=== PATIENT | male | born 1955 | race Caucasian/White ===

== ENCOUNTER 2020-08-21 17:06 | Inpatient (IN) | payer MEDICARE, SELFPAY ==
[2020-08-21] VITALS (7 sets, daily range): BP systolic 104–131; BP diastolic 53–80; PULSE 53–103; RESP 14–26; TEMP 36.4–36.8; O2SAT 92–95
--- NOTE | ~2020-08-21 | CT_ITS ---
EXAMINATION: CT abdomen pelvis w con DATE: 08/21/2020 20:06 INDICATION: Hematuria. Sepsis. TECHNIQUE: Computed tomography (CT) of the abdomen and pelvis was performed with 100 mL Omnipaque 350 intravenous contrast. Automated exposure control and iterative reconstruction technique were employe d. The dose-length product was 1157.87 mGy-cm. COMPARISON: None. FINDINGS: The visualized portions of the lung bases demonstrate mild atelectasis. No pleural effusion . The heart size is normal. No pericardial effusion. The liver, gallbladder, spleen, pancreas, and ad renal glands are normal. There are cysts in the kidneys measuring up to 12 mm on the left. The prosta te is moderately enlarged. There are no dilated loops of bowel. The appendix is normal. There are no pathologically enlarged lymph nodes. There is no free intraperitoneal fluid. There is severe lower navarro mbar spondylosis. IMPRESSION: 1. No etiology for hematuria. Reviewed, dictated and finalized at location A. CLUB WEIGHER
--- NOTE | ~2020-08-21 | XR_ITS ---
EXAMINATION: XR chest 2V DATE: 08/21/2020 19:21 INDICATION: Shortness of breath, cough, and fever. TECHNIQUE: Frontal and lateral views of the chest were obtained. COMPARISON: Chest 2 views 11/04/2016, chest CT 05/09/2012 FINDINGS: There are lucencies in the lungs, consistent with emphysema. There is mild atelectasis and scarring in the lower lung zones. No pleural effusion or pneumothorax. The heart size is normal. IMPRESSION: 1. Emphysema. 2. Mild atelectasis and scarring in the lower lung zones. Reviewed, dictated and finalized at location A. H PRESSER
--- NOTE | 2020-08-21 17:39 | ED.SOB ---
HPI - SOB/Dyspnea General Chief Complaint: Urogenital-Male Stated Complaint: peeing blood,cough, out of breath Time Seen by Provider: 08/21/20 17:39 Source: patient Mode of arrival: wheelchair Limitations: no limitations History of Present Illness HPI Narrative: 65-year-old man with a history of congestive heart failure and COPD comes in today complaining of 3 days of painless hematuria, cough, and progressive shortness of breath. He denies history of hematuria has had no abdominal pain, epistaxis, bruising, obstruction symptoms, or back pain. Denies any sick exposures, chest pain, sputum production, fever, chills or night sweats. MD elicited complaint: shortness of breath and cough Pertinent past history: COPD and congestive heart failure Onset (ago): day(s) (3) Context: recent illness Timing: constant and progressively worsening Severity: moderate Exacerbating factors: exertion Relieving factors: nothing and rest Known history of: COPD and congestive heart failure Associated symptoms: cough Treatment prior to arrival: none Related Data Home oxygen amount: none Home Medications Medication Instructions Recorded Confirmed albuterol sulfate 2 puff INHALATION PRN 08/21/20 08/21/20 atenolol 50 mg PO DAILY 08/21/20 08/21/20 atorvastatin 10 mg PO DAILY 08/21/20 08/21/20 fluticasone propion-salmeterol 2 inh INHALATION BID 08/21/20 08/21/20 [Akbarela Inhub] losartan 100 mg PO DAILY 08/21/20 08/21/20 metformin 500 mg PO BID 08/21/20 08/21/20 spironolactone 25 mg PO DAILY 08/21/20 08/21/20 Allergies Allergy/AdvReac Type Severity Reaction Status Date / Time No Known Allergies Allergy Unknown Unverified 05/23/14 00:51 Review of Systems Constitutional: Constitutional: Denies chills, Reports fatigue, Denies fever(s) and Reports weakness Eyes: Eyes: Denies change in vision and Denies photophobia ENT: Denies dysphagia, Denies nasal congestion and Reports sore throat Cardiovascular: Cardiovascular: Denies chest pain and Denies radiating jaw, neck or arm pain Respiratory: Respiratory: Reports as per HPI, Reports cough, Reports dyspnea and Denies wheezing Gastrointestinal: Gastrointestinal: Denies abdominal pain, Denies diarrhea, Denies nausea and Denies vomiting Comments: Denies hematochezia, melena, and hematemesis. Genitourinary: Genitourinary: Reports hematuria, Denies dysuria and Reports urinary frequency Musculoskeletal: Musculoskeletal: Denies back pain, Denies arthralgias and Denies joint swelling Integumentary/Breasts: Skin/Breast: Denies pruritus, Denies erythema and Denies rash Neurologic: Denies vertigo, Denies dizziness and Denies syncope Endocrine: Endocrine: Denies polydipsia and Denies polyuria Hematologic/Lymphatic: Hematologic/Lymphatic: Denies easy bleeding and Denies easy bruising Allergic/Immunologic: Allergic/Immunologic: Denies lip swelling and Denies throat swelling PMFSH Past Medical History Medical History Congestive heart failure negative heart catheterization per patient COPD (chronic obstructive pulmonary disease) Dyslipidemia T2DM (type 2 diabetes mellitus) Surgical History Surgical History History of left heart catheterization Social History Social History Smoking status: Current every day smoker Substance use: never Living arrangements: with family Exam Const: General: alert and ill appearing acutely Orientation/consciousness: patient oriented x3 Other: Mild acute distress, dyspneic HENMT: Head: normal to inspection Ears: external ears normal, TM's normal bilaterally and EAC's normal General nose exam: Normal nares present Face and sinus: normal facial exam Mouth: Yes moist mucous membranes Other: diffuse pharyngeal erythema Eyes: Conjunctivae: conjunctivae normal Pupils: Equal, round and
--- NOTE | 2020-08-21 17:44 | ECG_ITS ---
Measurements Intervals [place] Rate: 98 P: 66 CO: 178 QRS: 63 QRSD: 97 T: 55 QT: 343 QTc: 439 Interpretive Statements SINUS RHYTHM DELAYED PRECORDIAL R/S TRANSITION BASELINE WANDER- V1, V6 BORDERLINE ECG Electronically Signed On 08-21-2020 20:18:45 CERTIFIED PEER SPECIALIST by Wilder Goyal D.O.
[2020-08-21 18:18] LABS: Basophils Absolute Auto 0.04 K/mm3 (0.00-0.10); Basophils Percent Auto 0.2 % (0.0-1.0); Eosinophils Absolute Auto 0.03 K/mm3 (0.02-0.50); Eosinophils Percent Auto 0.2 % (1.0-6.0); Hematocrit 48.4 % (37.0-46.0); Hemoglobin 16.1 g/dL (12.4-15.3); Immature Granulocyte Absolute 0.14 K/mm3 (0.00-0.00); Immature Granulocyte Percent A 0.7 % (0.0-0.0); Lymphocytes Absolute Auto 1.08 K/mm3 (1.10-4.50); Lymphocytes Percent Auto 5.6 % (18.0-42.0); Mean Corpuscular HGB Conc 33.3 g/dL (32.0-36.0); Mean Corpuscular Hemoglobin 28.6 pg (27.0-31.0); Mean Platelet Volume 10.8 fl (8.7-11.0); Monocytes Absolute Auto 1.12 K/mm3 (0.10-0.90); Monocytes Percent Auto 5.8 % (2.0-11.0); Neutrophils Absolute Auto 16.9 K/mm3 (1.7-7.2); Neutrophils Percent Auto 87.5 % (50.0-70.0); Platelet Count Result 207 K/mm3 (150-420); Red Blood Count 5.63 M/mm3 (4.70-6.10); Red Cell Distribution Width 13.2 % (11.6-14.4); White Blood Count 19.4 K/mm3 (4.8-10.8)
[2020-08-21 18:21] LABS: Add Urine Microscopic? YES; Appearance Urine Clear (Clear); Bilirubin Urine Negative (Negative); Blood Urine 3+ (Negative); Color Urine Yellow (Yellow); Glucose Urine UA 3+ (Negative); Ketones Urine Negative (Negative); Leukocyte Esterase Ur Negative LEU/UL (Negative); Nitrate Urine Negative (Negative); Protein Urine Negative (Negative); Specific Grav Ur <= 1.005 (1.010-1.020); Urobilinogen Urine 0.2 mg/dL (0.2-1.0); pH Urine 5.5 (5.0-8.0)
[2020-08-21 18:29] LABS: RBC Urine >75 /hpf (0-2)
[2020-08-21 18:30] LABS: Bacteria Urine 1+ /hpf; WBC Urine 0-3 /hpf (0-3)
[2020-08-21 18:33] LABS: Partial Thromboplastin Time 29.7 SEC (23.90-30.70); Prothrombin Time 10.5 Seconds (9.50-12.10)
[2020-08-21 18:36] LABS: Alanine Aminotransferase 42 U/L (16-63); Albumin Level 3.2 g/dL (3.4-5.0); Alkaline Phosphatase 105 U/L (46-116); Anion Gap 13 mmol/L (8-16); Aspartate Amino Transferase 14 U/L (15-37); Bilirubin,Total 0.7 mg/dL (0.00-1.00); Blood Urea Nitrogen 15 mg/dL (7-18); Calcium 9.3 mg/dL (8.5-10.1); Carbon Dioxide 25 mmol/L (21-32); Chloride 94 mmol/L (98-108); Estimated CRCL calculation 46 ml/min; Estimated Glomerular Filt Rate 44; Osmolality Calculated 295 mOsm/kg (285-295); Potassium 4.2 mmol/L (3.5-5.1); Sodium 132 mmol/L (136-145); Total Protein 7.1 g/dL (6.4-8.2); Troponin I 12.4 ng/L (0.00-60.4)
[2020-08-21 18:37] LABS: Influenza Control Valid (Valid); SARS-CoV-2 Ag Negative (Negative)
[2020-08-21 18:39] LABS: BNP 33.3 pg/mL (0-100); Lactic Acid Reflex 6.3 mmol/L (0.4-2.0)
[2020-08-21 18:40] LABS: Glucose 482 mg/dL (70-99)
[2020-08-21] MEDS: IPRATROPIUM 0.5 MG/ALBUTEROL SULFATE 2.5 MG AMPUL.NEB 3 ML INHALATION (18:44)
--- NOTE | 2020-08-21 18:50 | PC.NURSE ---
ERP STATES URINARY CATHETER IS NOT NEEDED AT THIS TIME
[2020-08-21] MEDS: SODIUM CHLORIDE 0.9% IV 1,000 ML 999 ML IV CONT (19:10)
[2020-08-21 21:22] LABS: Reflex Lactic Acid Yes or No Add Lactic
[2020-08-21 21:44] LABS: Lactic Acid 2.7 mmol/L (0.4-2.0)
--- NOTE | 2020-08-21 22:00 | ADMGEN ---
This patient, Roni Granados, was admitted to 2nd Floor Room 211-1. Patient oriented to hospital policies and general routines including ID bracelet, bed and alarms, visiting hours, pain management, procedures, bathroom and other care routines, personal items, smoking policy, room service/diet, and visiting hours. Information on how to activate the Rapid Response Team has been discussed. Patient are encouraged to report perceived risks to care and to ask questions if they do not understand what they are told or what they should do. Patient ambulates steadily with no balance loss and using no assistive device. Patient coughing with small amount of white sputum noted. O2 on @ 2 lpm/nc. SpO2 dropping to 88% while coughing and then goes back up to 92-93% when done coughing. Patient alert and oriented. IV NS started to infuse to #20 in RAC. Patient denies pain/complaints/needs @ this time. No distress noted. Call light in reach.
[2020-08-21] MEDS: SODIUM CHLORIDE 0.9% IV 1,000 ML 150 ML IV CONT (22:22)
[2020-08-21] MEDS: ALBUTEROL SULFATE (*SP) INHALER 2 PUFF INHALATION (22:23)
[2020-08-21 22:54] LABS: Glucose Point of Care 208 (65-105)
[2020-08-21] MEDS: INSULIN HUMAN REGULAR (*BKC) 100 UNITS/ML SUB-Q (22:56)
[2020-08-22] VITALS (8 sets, daily range): BP systolic 102–116; BP diastolic 54–55; PULSE 78–88; RESP 20; TEMP 36.6–38.3; O2SAT 91–93; BMI 30.2
[2020-08-22] MEDS: ALBUTEROL SULFATE (*SP) INHALER 2 PUFF INHALATION ×2 (01:04→06:01)
--- NOTE | 2020-08-22 01:25 | PC.NURSE ---
Went into patients room with fresh ice water and patient was just waking up. Patient complained of room being too hot. Temp of room was increased earlier per patient's request. Room temp decreased. Noted patient to appear flushed in the face. Temperature taken and temp is 101.0 orally. Charge nurse notified and is notifying MD and requesting Tylenol order.
--- NOTE | 2020-08-22 01:27 | PC.NURSE ---
Dr. Lebron notified of pt's temp of 101.0. New orders received and noted.
[2020-08-22] MEDS: ACETAMINOPHEN 500 MG TABLET 1000 MG PO (01:30)
[2020-08-22 01:36] LABS: Lactic Acid Reflex 1.6 mmol/L (0.4-2.0)
[2020-08-22] MEDS: SODIUM CHLORIDE 0.9% IV 1,000 ML 150 ML IV CONT ×2 (03:50→10:15)
[2020-08-22 05:36] LABS: Basophils Absolute Auto 0.06 K/mm3 (0.00-0.10); Basophils Percent Auto 0.5 % (0.0-1.0); Eosinophils Absolute Auto 0.02 K/mm3 (0.02-0.50); Eosinophils Percent Auto 0.2 % (1.0-6.0); Hematocrit 44.9 % (37.0-46.0); Hemoglobin 14.7 g/dL (12.4-15.3); Immature Granulocyte Absolute 0.06 K/mm3 (0.00-0.00); Immature Granulocyte Percent A 0.5 % (0.0-0.0); Lymphocytes Absolute Auto 1.63 K/mm3 (1.10-4.50); Lymphocytes Percent Auto 12.9 % (18.0-42.0); Mean Corpuscular HGB Conc 32.7 g/dL (32.0-36.0); Mean Corpuscular Hemoglobin 28.1 pg (27.0-31.0); Mean Corpuscular Volume 85.9 fL (78.0-102.0); Mean Platelet Volume 10.4 fl (8.7-11.0); Monocytes Absolute Auto 1.04 K/mm3 (0.10-0.90); Monocytes Percent Auto 8.3 % (2.0-11.0); Neutrophils Absolute Auto 9.8 K/mm3 (1.7-7.2); Neutrophils Percent Auto 77.6 % (50.0-70.0); Platelet Count Result 185 K/mm3 (150-420); Red Blood Count 5.23 M/mm3 (4.70-6.10); Red Cell Distribution Width 13.2 % (11.6-14.4); White Blood Count 12.6 K/mm3 (4.8-10.8)
[2020-08-22 05:42] LABS: Hemoglobin A1C 11.3 % (<5.7)
[2020-08-22 05:56] LABS: Alanine Aminotransferase 43 U/L (16-63); Albumin Level 2.7 g/dL (3.4-5.0); Alkaline Phosphatase 82 U/L (46-116); Anion Gap 8 mmol/L (8-16); Aspartate Amino Transferase 21 U/L (15-37); Bilirubin,Total 0.9 mg/dL (0.00-1.00); Blood Urea Nitrogen 15 mg/dL (7-18); Calcium 8.6 mg/dL (8.5-10.1); Carbon Dioxide 26 mmol/L (21-32); Chloride 101 mmol/L (98-108); Estimated CRCL calculation 60 ml/min; Estimated Glomerular Filt Rate > 60; Glucose 207 mg/dL (70-99); Osmolality Calculated 286 mOsm/kg (285-295); Potassium 4.1 mmol/L (3.5-5.1); Sodium 135 mmol/L (136-145); Troponin I 16.2 ng/L (0.00-60.4)
[2020-08-22 06:00] LABS: Lactic Acid Reflex 1.1 mmol/L (0.4-2.0)
[2020-08-22] MEDS: SALMET XINAFT/FLUTIC PROPIN 250 MCG/50 MCG INH CAP 2 PUFF INHALATION (08:30)
[2020-08-22] MEDS: LOSARTAN POTASSIUM 50 MG TABLET 100 MG PO (08:31)
[2020-08-22] MEDS: SPIRONOLACTONE 25 MG TABLET PO (08:31)
[2020-08-22] MEDS: atenoloL 50 MG TABLET PO (08:31)
[2020-08-22] MEDS: ATORVASTATIN 10 MG TABLET PO (08:32)
[2020-08-22 08:44] LABS: Glucose Point of Care 179 (65-105)
[2020-08-22 09:00] LABS: Prostate Specific Antigen 7.1 ng/mL (< OR = 4.0)
[2020-08-22 09:20] LABS: CRP 9.4 mg/dL (0.0-0.9)
--- NOTE | 2020-08-22 11:07 | PM.SD2 ---
Same Day Admit/Disch: HPI History of Present Illness Chief complaint: SEPSIS HEMATURIA Narrative: Roni Granados is a 65 year old male that presented to our ED with shortness of breath cough and hematuria. Patient has a past medical history of congestive heart failure, COPD, dyslipidemia, type 2 diabetes. According to patient for approximately 1 week he has been having hematuria. Patient notes that on occasions he did see clots with the blood in his urine. Patient also notes that he has been having weakness with his blood in urine due to a large blood loss patient hemoglobin hematocrit was within normal limits on admission. Patient is a smoker he does have a chronic cough. Patient noted that the day of presentation to the ED in since admission he has not had any blood in his urine. Patient did have blood and bacteria in his urine his lactic acid on admission was 6.3 his INR was 1.0, his CT of the abdomen was negative for hematuria chest x-ray indicated emphysema, EKG sinus rhythm with a heart rate of 98, rapid Covid negative, troponin negative x3, CRP elevated at 9.4, PSA is 7, patient was febrile 101 during admission currently afebrile with a temperature 97.8. Patient was placed on Zosyn and vancomycin on admission. Patient agrees that he is ready for admission. He will remain quarantined until his Covid results are verified. The patient denies SOB, CP, palpitation, extremity numbness, lightheadedness, dizziness, constipation, diarrhea, chills, fever, hematuria, penile discharge or abdominal pain PMFSH Past Medical History Medical History Congestive heart failure negative heart catheterization per patient COPD (chronic obstructive pulmonary disease) Dyslipidemia T2DM (type 2 diabetes mellitus) Surgical History Surgical History History of left heart catheterization Social History Social History Smoking packs per day: 1 Smoking cigarettes per day: 20.0 Years smoked: 52 Smoking pack-years: 52.00 Smoking status: Current every day smoker Tobacco type: cigarettes Second hand tobacco smoke exposure: Yes Alcohol intake: never Substance use: never Living arrangements: with family Gender identity (if verbalized by the patient): Male Sexual Orientation (if Verbalized by the Patient): Straight or Heterosexual Spiritual care concerns: No Same Day Admit/Disch: Med Pre-admit Medications Home Medications Medication Instructions Recorded Confirmed Type albuterol sulfate 2 puff INHALATION PRN 08/21/20 08/21/20 History atenolol 50 mg PO DAILY 08/21/20 08/21/20 History atorvastatin 10 mg PO DAILY 08/21/20 08/21/20 History fluticasone propion-salmeterol 2 inh INHALATION BID 08/21/20 08/21/20 History [Wixela Inhub] losartan 100 mg PO DAILY 08/21/20 08/21/20 History metformin 500 mg PO BID 08/21/20 08/21/20 History spironolactone 25 mg PO DAILY 08/21/20 08/21/20 History Exam Narrative: Exam Narrative: GENERAL: This is a well-nourished, well-developed patient, in no apparent distress. HEAD: normocephalic, atraumatic. EYES: PERRL. Sclera clear/white. Vision is grossly intact. EARS: External ears normal, auditory canals clear and without drainage, TMs normal without perforation. Hearing grossly intact. NOSE: External nose normal with no obvious nasal discharge, nares without redness, no rhinorrhea. THROAT: Mucous membranes moist, posterior pharynx clear. NECK: Neck supple, non-tender without lymphadenopathy, masses or thyromegaly. CARDIOVASCULAR: Regular rate and rhythm without murmurs, gallops, or rubs. RESPIRATORY: Clear to auscultation. Breath sounds equal bilaterally. No wheezes, rales, or rhonchi. GASTROINTESTINAL: Abdomen soft, non-tender, nondistended. Bowel sounds are active. No hepato-splenomegaly, or palpable masses. No guarding. SKIN:
[2020-08-22 11:25] LABS: Glucose Point of Care 260 (65-105)
--- NOTE | 2020-08-22 15:37 | PC.NURSE ---
1420 pt dc to family auto to go home. vocalizes an understanding of dc instructions. all personal belongings sent with him.
[2020-08-23 17:46] LABS: SARS-CoV-2 RNA PCR Negative
--- NOTE | 2020-08-27 14:07 | PCDIET ---
Unable to contact for discharge call back.
== END 2020-08-22 14:20 | disposition home or self-care (01) | DRG 690 ==
LOC: CHSED 20:28 → CHS2ND 20:48
PROVIDERS: Nurse Practitioner; Admitting Provider Emergency Medicine; Emergency Provider Emergency Medicine; PCP Physician Assistant; Visit Provider Emergency Medicine
DX: N39.0 Urinary tract infection, site not specified (principal); N41.0 Acute prostatitis; N17.9 Acute kidney failure, unspecified; R31.9 Hematuria, unspecified; I50.9 Heart failure, unspecified; J44.9 Chronic obstructive pulmonary disease, unspecified; F17.200 Nicotine dependence, unspecified, uncomplicated; E78.5 Hyperlipidemia, unspecified; E11.9 Type 2 diabetes mellitus without complications; N40.0 Benign prostatic hyperplasia without lower urinary tract symptoms; F17.210 Nicotine dependence, cigarettes, uncomplicated; Z20.822 Contact with and (suspected) exposure to COVID-19; A41.9 Sepsis, unspecified organism
CPT/HCPCS: 36415; 71046; 74177; 80053; 81001; 82948; 83036; 83605; 83880; 84153; 84484; 85025; 85610; 85730; 86140; 87040; 87077; 87086; 87088; 87186; 87426; 87804; 93005; 94640; 96365; 96367; 99285; A9270; C9803; J1815; J2543; J3370; J7030; Q9967; U0003; U0005

== ENCOUNTER 2020-11-13 12:19 | Emergency (ER) | payer MEDICARE, OTHER, SELFPAY ==
--- NOTE | ~2020-11-13 | XR_ITS ---
EXAMINATION: XR foot RT min 3V DATE: 11/13/2020 13:11 INDICATION: Right foot injury. TECHNIQUE: 4 views of right foot were obtained. COMPARISON: None. FINDINGS: Bone alignment is normal. No fracture. There is moderate osteoarthritis of first metatarsop halangeal joint and mild osteoarthritis of fifth proximal interphalangeal joint and talonavicular brielle nt. There is an enthesophyte at plantar aspect of calcaneal tuberosity. There is soft tissue swelling of the foot. IMPRESSION: 1. Polyarticular osteoarthritis. Reviewed, dictated and finalized at location A.
--- NOTE | ~2020-11-13 | XR_ITS ---
EXAMINATION: XR ankle RT min 3V DATE: 11/13/2020 13:11 INDICATION: Right ankle injury. TECHNIQUE: 4 views of right ankle were obtained. COMPARISON: None. FINDINGS: Bone alignment is normal. No fracture. There is osteochondral lesion of medial talar dome. There is an enthesophyte at plantar aspect of calcaneal tuberosity. Ankle soft tissue swelling is not ed. IMPRESSION: 1. Osteochondral lesion of medial talar dome. Reviewed, dictated and finalized at location A.
[2020-11-13 12:45] VITALS: BP 144/68; PULSE 64; RESP 14; TEMP 36.4; O2SAT 97
--- NOTE | 2020-11-13 13:12 | ED.GENADULT ---
HPI - General Adult General Chief complaint: Extremity Injury, Lower Stated complaint: Hurt foot History of Present Illness HPI narrative: Earnest is a 65M with a PMH of HTN, HLD, CHF, COPD, DMII, tobacco use that presented to the ED with pain and swelling in the right ankle. He injured his right ankle while working a month ago and reinjured it a couple days ago. A couple days ago he was walking on a bank to go fishing and rolled his ankle. He has had pain and swelling since. No other injures reported. Related Data Home Medications Medication Instructions Recorded Confirmed albuterol sulfate 2 puff INHALATION PRN 08/21/20 11/13/20 atenolol 50 mg PO HS 08/21/20 11/13/20 atorvastatin 10 mg PO DAILY 08/21/20 11/13/20 losartan 100 mg PO HS 08/21/20 11/13/20 metformin 500 mg PO BID 08/21/20 11/13/20 spironolactone 25 mg PO HS 08/21/20 11/13/20 aspirin [Adult Aspirin] 81 mg PO HS 11/13/20 11/13/20 glucos sul [id number] 1 cap PO BID 11/13/20 11/13/20 [Glucosamine Chondroitin] Allergies Allergy/AdvReac Type Severity Reaction Status Date / Time No Known Allergies Allergy Unknown Unverified 05/23/14 00:51 Review of Systems Constitutional: Constitutional: Reports no additional constitutional complaints, Denies chills and Denies fever(s) Eyes: Eyes: Reports no additional eye complaints ENT: Reports system reviewed and no additional complaints, except as documented Cardiovascular: Cardiovascular: Reports no additional cardiovascular complaints Respiratory: Respiratory: Reports no additional respiratory complaints Gastrointestinal: Gastrointestinal: Reports no additional gastrointestinal complaints Genitourinary: Genitourinary: Reports no additional male genitourinary complaints Musculoskeletal: Musculoskeletal: Reports as per HPI Integumentary/Breasts: Skin/Breast: Reports system reviewed and no additional complaints, except as docu Neurologic: Reports system reviewed and no additional complaints, except as documented Psychiatric: Psychiatric: Reports no additional psychiatric complaints Endocrine: Endocrine: Reports no additional endocrine complaints Hematologic/Lymphatic: Hematologic/Lymphatic: Reports no additional hematologic/lymphatic complaints Allergic/Immunologic: Allergic/Immunologic: Reports no additional allergic/immunologic complaints FOR[facility]LY [facility], [facility] Past Medical History Medical History Congestive heart failure negative heart catheterization per patient COPD (chronic obstructive pulmonary disease) Dyslipidemia T2DM (type 2 diabetes mellitus) Surgical History Surgical History History of left heart catheterization Social History Social History Smoking packs per day: 1 Smoking cigarettes per day: 20.0 Years smoked: 52 Smoking pack-years: 52.00 Smoking status: Current every day smoker Tobacco type: cigarettes Second hand tobacco smoke exposure: Yes Alcohol intake: never Substance use: never Gender identity (if verbalized by the patient): Male Spiritual care concerns: No Exam Const: General: no acute distress and alert Orientation/consciousness: patient oriented x3 Limitations: altered mental status HENMT: Head: normal to inspection Other: atraumatic Eyes: Conjunctivae: conjunctivae normal Pupils: Equal, round and reactive pupils present Neck: Neck: normal visual inspection Chest: Chest palpation & inspection: normal inspection of the chest Resp: Effort & Inspection: normal respiratory effort Auscultation: clear to auscultation bilaterally Cardio: Rate: regular rate GI: GI Palp: Yes Soft to palpation, No Tenderness to palpation present (GI) and No Guarding due to palpation present (GI) Back/Spine/Pelvis: Back: no CVA tenderness Skin: General skin exam: normal color Rashes: no rashes Neuro:
[2020-11-13] MEDS: HYDROcodone/acetaminophen (*CRX) 5-325 MG TABLET 1 TAB PO (13:36)
[2020-11-13 13:56] VITALS: RESP 15; O2SAT 98
--- NOTE | 2020-11-13 13:57 | PC.NURSE ---
erasmo wrap applied to right foot per requested by erp dr. salvador
== END 2020-11-13 14:03 | disposition home or self-care (01) ==
PROVIDERS: Emergency Provider Family Medicine; PCP Physician Assistant
DX: M89.9 Disorder of bone, unspecified (principal); M19.071 Primary osteoarthritis, right ankle and foot
CPT/HCPCS: 73610; 73630; 99282; 99283; A9270

== ENCOUNTER 2021-01-06 10:01 | Outpatient (CLI) | payer MEDICARE, OTHER, SELFPAY ==
--- NOTE | ~2021-01-06 | XR_ITS ---
EXAMINATION: XR foot RT min 3V DATE: 01/06/2021 10:31 INDICATION: Right foot injury. TECHNIQUE: 3 views of right foot were obtained. COMPARISON: None. FINDINGS: Pes planus is noted. No fracture. There is mild osteoarthritis of first metatarsophalangeal joint and some of the midfoot joints. There is an enthesophyte at plantar aspect of calcaneal tubero sity. IMPRESSION: 1. Pes planus. 2. Mild polyarticular osteoarthritis. Reviewed, dictated and finalized at location A.
--- NOTE | ~2021-01-06 | XR_ITS ---
EXAMINATION: XR ankle RT min 3V DATE: 01/06/2021 10:31 INDICATION: Right ankle injury. TECHNIQUE: 3 views of right ankle were obtained. COMPARISON: None. FINDINGS: Bone alignment is normal. No fracture. There is an osteochondral lesion of medial talar dom e. There is mild osteoarthritis of talonavicular joint. There is an enthesophyte at plantar aspect of calcaneal tuberosity. Ankle soft tissue swelling is noted. IMPRESSION: 1. Polyarticular osteoarthritis. Reviewed, dictated and finalized at location A.
== END 2021-01-06 10:02 | disposition home or self-care (01) ==
LOC: CHSIMG 10:05
PROVIDERS: PCP Physician Assistant; Visit Provider Podiatrist
DX: M79.671 Pain in right foot (principal); M25.571 Pain in right ankle and joints of right foot
CPT/HCPCS: 73610; 73630

== ENCOUNTER 2021-08-01 12:57 | Emergency (ER) | payer MEDICARE, OTHER, SELFPAY ==
[2021-08-01 13:21] VITALS: BP 120/67; PULSE 91; RESP 16; TEMP 36.1; O2SAT 97
--- NOTE | 2021-08-01 13:44 | PC.NURSE ---
Bladder scan shows 9ml post void. ERP aware. Awaiting UA results.
[2021-08-01 14:03] LABS: Add Urine Microscopic? YES; Appearance Urine Cloudy (Clear); Bilirubin Urine Negative (Negative); Blood Urine 3+ (Negative); Color Urine Red (Yellow); Glucose Urine UA 3+ (Negative); Ketones Urine 1+ (Negative); Leukocyte Esterase Ur 2+ (Negative); Nitrate Urine Positive (Negative); Protein Urine 1+ (Negative)
[2021-08-01 14:13] LABS: RBC Urine 51-75 /hpf (0-2); WBC Urine 51-75 /hpf (0-3)
[2021-08-01 14:14] LABS: Bacteria Urine 2+ /hpf; Squamous Epithelial Cell Urine None seen /hpf (Few)
--- NOTE | 2021-08-01 14:20 | ED.MALEGU ---
HPI - Male Genitourinary General Chief complaint: Urogenital-Male Stated complaint: peralta when urinating and frequant urination Time Seen by Provider: 08/01/21 12:59 Source: patient, family and RN notes reviewed Mode of arrival: ambulatory Limitations: no limitations History of Present Illness HPI Narrative: Pt does not have urinary retention, merely voiding difficulty due to the dysuria. Complaint: dysuria Duration: progressively worsening Location: penis Severity: moderate Severity scale (1-10): 5 Quality: burning Relieving factors: none Exacerbating factors: none Associated symptoms: Reports denies other symptoms Related Data Sexually active: No Home Medications Medication Instructions Recorded Confirmed albuterol sulfate 2 puff INHALATION PRN 08/21/20 08/01/21 atenolol 50 mg PO HS 08/21/20 08/01/21 atorvastatin 10 mg PO DAILY 08/21/20 08/01/21 losartan 100 mg PO HS 08/21/20 08/01/21 metformin 500 mg PO BID 08/21/20 08/01/21 spironolactone 25 mg PO HS 08/21/20 08/01/21 aspirin [Adult Aspirin] 81 mg PO HS 11/13/20 08/01/21 glucos sul [id number]-Mn 1 cap PO BID 11/13/20 08/01/21 [Glucosamine Chondroitin] Allergies Allergy/AdvReac Type Severity Reaction Status Date / Time No Known Allergies Allergy Unknown Verified 08/01/21 13:14 Review of Systems Review of Systems: All systems reviewed & are unremarkable except as noted in HPI and below Genitourinary: Genitourinary: Reports dysuria PMFSH Past Medical History Medical History Congestive heart failure negative heart catheterization per patient COPD (chronic obstructive pulmonary disease) Dyslipidemia T2DM (type 2 diabetes mellitus) Urinary tract infection Surgical History Surgical History History of left heart catheterization Social History Social History Smoking packs per day: 1 Smoking cigarettes per day: 20.0 Years smoked: 52 Smoking pack-years: 52.00 Smoking status: Current every day smoker Tobacco type: cigarettes Second hand tobacco smoke exposure: Yes Alcohol intake: never Substance use: never Gender identity (if verbalized by the patient): Male Sexual Orientation (if Verbalized by the Patient): Straight or Heterosexual Spiritual care concerns: No Exam Const: General: cooperative, comfortable and alert Nutritional Appearance: obese Orientation/consciousness: patient oriented x3 Limitations: no limitations HENMT: Head: normal to inspection, normocephalic and atraumatic Ears: hearing grossly normal bilaterally, external ears normal and TM's normal bilaterally General nose exam: Normal external nose present and Normal nares present Face and sinus: normal facial exam and sinuses nontender Mouth: Yes Normal oral and palatal mucosa present, Yes lip normal, Yes tongue normal, Yes oropharynx normal and Yes moist mucous membranes Eyes: General: appearance normal, both eyes and all related structures Eyelids: eyelids normal Conjunctivae: conjunctivae normal Sclera: sclerae normal Cornea: corneas normal Pupils: Equal, round and reactive pupils present EOM: EOMs intact bilaterally Direct Ophthalmoscopy: normal light reflex Neck: Neck: normal visual inspection, full ROM and no lymphadenopathy Chest: Chest palpation & inspection: normal inspection of the chest Resp: Effort & Inspection: normal respiratory effort Auscultation: rhonchi Cardio: Palpation: normal PMI Rate: regular rate Rhythm: regular rhythm GI: Inspection: normal to inspection GI Palp: No abdominal tenderness and No Bladder palpation abnormal Auscultation: normal bowel sounds : General: Yes bladder normal to inspection and Yes bladder normal to palpation Back/Spine/Pelvis: Back: no CVA tenderness Thoracic/Lumbar Spine: thoracic and lumbar spine normal to inspection Sk
[2021-08-01] MEDS: cefTRIAXone 1 GM VIAL IM (14:25)
[2021-08-01 14:31] VITALS: BP 115/65; PULSE 79; RESP 16; TEMP 36.1; O2SAT 96
== END 2021-08-01 14:40 | disposition home or self-care (01) ==
PROVIDERS: Emergency Provider Emergency Medicine; PCP Physician Assistant
DX: N39.0 Urinary tract infection, site not specified (principal); I50.9 Heart failure, unspecified; J44.9 Chronic obstructive pulmonary disease, unspecified; E78.5 Hyperlipidemia, unspecified; E11.9 Type 2 diabetes mellitus without complications; F17.200 Nicotine dependence, unspecified, uncomplicated
CPT/HCPCS: 81001; 96372; 99283; J0696

== ENCOUNTER 2021-08-07 12:08 | Emergency (ER) | payer MEDICARE, OTHER, SELFPAY ==
[2021-08-07 12:55] VITALS: BP 147/70; PULSE 62; RESP 20; TEMP 36.5; O2SAT 97
--- NOTE | 2021-08-07 12:56 | ED.MALEGU ---
HPI - Male Genitourinary General Chief complaint: Urogenital-Male Stated complaint: burning urination Time Seen by Provider: 08/07/21 12:56 Source: patient and family Mode of arrival: ambulatory Limitations: no limitations History of Present Illness HPI Narrative: this is a 66-year-old gentleman that presents with dysuria and urinary dribbling was seen in the emergency department on Wednesday the 01 of August with similar problem started on Keflex, the patient called his provider and told him to return to the ER patient has been passing urine but with some more frequency and dribbling and there is no suprapubic tenderness no fever chills no flank pain no hematuria no abdominal pain. Onset (ago): day(s) Duration: intermittent Severity: mild Quality: burning and other ( trouble urinating) Relieving factors: urination Exacerbating factors: none Context: new medication Associated symptoms: Reports denies other symptoms Related Data Home Medications Medication Instructions Recorded Confirmed albuterol sulfate 2 puff INHALATION PRN 08/21/20 08/07/21 atenolol 50 mg PO HS 08/21/20 08/07/21 atorvastatin 10 mg PO DAILY 08/21/20 08/07/21 losartan 100 mg PO HS 08/21/20 08/07/21 metformin 500 mg PO BID 08/21/20 08/07/21 spironolactone 25 mg PO HS 08/21/20 08/07/21 aspirin [Adult Aspirin] 81 mg PO HS 11/13/20 08/07/21 glucos sul [id number]-[id number]-[id number]-C-Mn 1 cap PO BID 11/13/20 08/07/21 [Glucosamine Chondroitin] linagliptin [Tradjenta] 5 mg PO DAILY 08/07/21 08/07/21 qbsjlemmufzq-glaoqdno-etggjk 1 tablet PO DAILY 08/07/21 08/07/21 [Centrum Silver] Allergies Allergy/AdvReac Type Severity Reaction Status Date / Time No Known Allergies Allergy Unknown Verified 08/07/21 12:42 Review of Systems Review of Systems: All systems reviewed & are unremarkable except as noted in HPI and below PMFSH Past Medical History Medical History Congestive heart failure negative heart catheterization per patient COPD (chronic obstructive pulmonary disease) Dyslipidemia T2DM (type 2 diabetes mellitus) Urinary tract infection Surgical History Surgical History History of left heart catheterization Social History Social History Smoking packs per day: 1 Smoking cigarettes per day: 20.0 Years smoked: 52 Smoking pack-years: 52.00 Smoking status: Current every day smoker Tobacco type: cigarettes Second hand tobacco smoke exposure: Yes Alcohol intake: never Substance use: never Gender identity (if verbalized by the patient): Male Sexual Orientation (if Verbalized by the Patient): Straight or Heterosexual Spiritual care concerns: No Exam Const: General: no acute distress HENMT: Head: normal to inspection Eyes: Pupils: Equal, round and reactive pupils present EOM: EOMs intact bilaterally Direct Ophthalmoscopy: no photophobia Neck: Neck: normal visual inspection Chest: Chest palpation & inspection: normal inspection of the chest Resp: Effort & Inspection: normal respiratory effort Auscultation: clear to auscultation bilaterally Cardio: Rate: regular rate GI: GI Palp: Yes Soft to palpation Percussion: Yes normal to percussion : General: Yes bladder normal to palpation and Yes no CVA tenderness Urinary Catheter: Urinary Catheter: patent and draining Back/Spine/Pelvis: Back: no CVA tenderness Skin: General skin exam: normal color Neuro: General: patient oriented x3, moves all extremities and no meningeal signs Extrem: General: normal to inspection and no pedal edema Psych: Appearance: grossly normal Mental Status: mental status grossly normal Affect: normal affect Course Course Emergency Course: UA was obtained and reviewed with family will start a different antibiotic and will start Flomax and advised follow-up with primary care phys
[2021-08-07] MEDS: TAMSULOSIN HCL 0.4 MG CAPSULE PO (13:14)
[2021-08-07 13:24] VITALS: BP 123/97; PULSE 61; RESP 20; TEMP 36.7; O2SAT 96
== END 2021-08-07 13:26 | disposition home or self-care (01) ==
PROVIDERS: Emergency Provider Emergency Medicine; PCP Physician Assistant
DX: N40.1 Benign prostatic hyperplasia with lower urinary tract symptoms (principal); N30.00 Acute cystitis without hematuria; I50.9 Heart failure, unspecified; J44.9 Chronic obstructive pulmonary disease, unspecified; E78.5 Hyperlipidemia, unspecified; E11.9 Type 2 diabetes mellitus without complications; F17.200 Nicotine dependence, unspecified, uncomplicated
CPT/HCPCS: 99283; A9270

== ENCOUNTER 2021-09-26 03:25 | Emergency (ER) | payer MEDICARE, OTHER, SELFPAY ==
[2021-09-26 03:25] VITALS: BP 158/62; PULSE 87; RESP 20; TEMP 35.8; O2SAT 98
--- NOTE | 2021-09-26 03:53 | ED.MALEGU ---
HPI - Male Genitourinary General Chief complaint: Urogenital-Male Stated complaint: Can't Urinate Source: patient and family Mode of arrival: ambulatory Limitations: no limitations History of Present Illness HPI Narrative: this is a 66-year-old gentleman that presents with some a history of enlarged prostate recently saw his urologist and was started on antibiotics, is currently on medicine to help shrink his prostate, but reached a level where he was not able to pass urine over last 6hours and presents with some obstruction of urine flow. Patient had tenderness in the suprapubic area with no fever chills. Complaint: dysuria Onset (ago): hour(s) Duration: constant Severity: moderate Related Data Home Medications Medication Instructions Recorded Confirmed atenolol 50 mg PO HS 08/21/20 09/26/21 losartan 100 mg PO HS 08/21/20 09/26/21 metformin 500 mg PO BID 08/21/20 09/26/21 spironolactone 25 mg PO HS 08/21/20 09/26/21 aspirin [Adult Aspirin] 81 mg PO HS 11/13/20 09/26/21 glucos sul 5MRt-cpf-hdkrg-C-Mn 1 cap PO BID 11/13/20 09/26/21 [Glucosamine Chondroitin] hqusibuxavtd-qpjofqmh-tsxvjl 1 tablet PO DAILY 08/07/21 09/26/21 [Centrum Silver] ciprofloxacin HCl 500 mg PO BID 09/26/21 09/26/21 Allergies Allergy/AdvReac Type Severity Reaction Status Date / Time No Known Allergies Allergy Unknown Verified 08/12/21 10:38 Review of Systems Review of Systems: All systems reviewed & are unremarkable except as noted in HPI and below PMFSH Past Medical History Medical History Congestive heart failure negative heart catheterization per patient COPD (chronic obstructive pulmonary disease) Dyslipidemia T2DM (type 2 diabetes mellitus) Urinary tract infection Surgical History Surgical History History of left heart catheterization Family History Family History Father , 37 Motorcycle accident Mother , 87 No problems noted. Social History Social History Social History: Patient drinks coffee all day. Smoking packs per day: 1 Smoking cigarettes per day: 20.0 Years smoked: 52 Smoking pack-years: 52.00 Smoking status: Current every day smoker Tobacco type: cigarettes Second hand tobacco smoke exposure: Yes Alcohol intake: never Substance use: never Substance use type: does not use Additional living arrangements comments: Patient is Gender identity (if verbalized by the patient): Male Sexual Orientation (if Verbalized by the Patient): Straight or Heterosexual Spiritual care concerns: No Exam Const: General: no acute distress HENMT: Head: normal to inspection Eyes: Conjunctivae: conjunctivae normal Pupils: Equal, round and reactive pupils present Neck: Neck: normal visual inspection, no lymphadenopathy and no meningeal signs Chest: Chest palpation & inspection: normal inspection of the chest Resp: Effort & Inspection: normal respiratory effort Cardio: Rate: regular rate Rhythm: regular rhythm GI: GI Palp: Yes Soft to palpation Percussion: Yes normal to percussion : Other: Suprapubic pressure Urinary Catheter: Urinary Catheter: patent and draining Back/Spine/Pelvis: Back: no CVA tenderness Skin: General skin exam: normal color Rashes: no rashes Neuro: General: patient oriented x3 and moves all extremities Extrem: General: normal to inspection Psych: Mental Status: mental status grossly normal Affect: normal affect Course Course Emergency Course: had a Pedroza catheter placed and there was 900cc of urine that drained. Patient after the Pedroza catheter feels much better with relief of suprapubic pressure. Vital Signs Vital signs: Vital Signs Temperature 35.8 C L 09/26/21 03:25 Pulse Rate 8
[2021-09-26 03:59] VITALS: BP 122/95; PULSE 88; RESP 20; O2SAT 95
== END 2021-09-26 04:13 | disposition home or self-care (01) ==
PROVIDERS: Emergency Provider Emergency Medicine; PCP Emergency Medicine
DX: N13.9 Obstructive and reflux uropathy, unspecified (principal); I50.9 Heart failure, unspecified; J44.9 Chronic obstructive pulmonary disease, unspecified; E78.5 Hyperlipidemia, unspecified; E11.9 Type 2 diabetes mellitus without complications; F17.200 Nicotine dependence, unspecified, uncomplicated
CPT/HCPCS: 99283

== ENCOUNTER 2021-10-02 23:38 | Emergency (ER) | payer MEDICARE, OTHER, SELFPAY ==
[2021-10-02 23:42] VITALS: BP 156/113; PULSE 93; RESP 19; TEMP 36.4; O2SAT 96
[2021-10-03] MEDS: LIDOCAINE HCL 2% GEL UROJET 10 ML PKG (00:03)
--- NOTE | 2021-10-03 00:20 | ED.GENADULT ---
HPI - General Adult General Chief complaint: Urogenital-Male Stated complaint: unable to void Time Seen by Provider: 10/02/21 23:43 Source: patient, family, RN notes reviewed and old records reviewed Mode of arrival: ambulatory Limitations: no limitations History of Present Illness HPI narrative: 66-year-old male with recent history of urinary retention currently on antibiotics for prostatitis. Presents to the emerge department for evaluation of acute urinary retention. Patient initially had urinary retention on September 26 and did have a Pedroza catheter placed. Patient had follow-up with urology today and at approximately 11 AM had a Pedroza catheter removed. Patient states he has not urinated since having the Pedroza catheter removed. Patient does describe lower abdominal pressure and abdominal pain. Patient states he did have pain that radiated to his testicles. Patient is taking Flomax and is also on Cipro. Patient denies any nausea vomiting or diarrhea. Patient denies any fevers. Related Data Home Medications Medication Instructions Recorded Confirmed atenolol 50 mg PO HS 08/21/20 09/26/21 losartan 100 mg PO HS 08/21/20 09/26/21 metformin 500 mg PO BID 08/21/20 09/26/21 spironolactone 25 mg PO HS 08/21/20 09/26/21 aspirin [Adult Aspirin] 81 mg PO HS 11/13/20 09/26/21 glucos sul 6ECo-dvm-inkqv-C-Mn 1 cap PO BID 11/13/20 09/26/21 [Glucosamine Chondroitin] ijhwhisahosk-awdbeall-xwadvq 1 tablet PO DAILY 08/07/21 09/26/21 [Centrum Silver] ciprofloxacin HCl 500 mg PO BID 09/26/21 09/26/21 Allergies Allergy/AdvReac Type Severity Reaction Status Date / Time No Known Allergies Allergy Unknown Verified 10/03/21 00:05 Review of Systems Review of Systems: CONSTITUTIONAL: Denies fever, chills, or sweats. EYES: Denies visual changes, redness, or discharge. ENT: Denies rhinorrhea, congestion, sore throat, or otalgia. CARDIOVASCULAR: Denies chest pain, palpitations, or edema. RESPIRATORY: Denies cough or dyspnea. GASTROINTESTINAL: Suprapubic abdominal pain GENITOURINARY: Urinary retention SKIN: Denies rash or itching. MUSCULOSKELETAL: Denies back pain, joint pain, or myalgia. NEUROLOGIC: Denies headache, numbness, or weakness. [facility] Past Medical History Medical History Congestive heart failure negative heart catheterization per patient COPD (chronic obstructive pulmonary disease) Dyslipidemia T2DM (type 2 diabetes mellitus) Urinary tract infection Surgical History Surgical History History of left heart catheterization Family History Family History Father , 37 Motorcycle accident Mother , 87 No problems noted. Social History Social History Social History: Patient drinks coffee all day. Smoking packs per day: 1 Smoking cigarettes per day: 20.0 Years smoked: 52 Smoking pack-years: 52.00 Smoking status: Current every day smoker Tobacco type: cigarettes Second hand tobacco smoke exposure: Yes Alcohol intake: never Substance use: never Substance use type: does not use Additional living arrangements comments: Patient is Gender identity (if verbalized by the patient): Male Sexual Orientation (if Verbalized by the Patient): Straight or Heterosexual Spiritual care concerns: No Exam Narrative: APPEARANCE: distress due to abdominal pain HEAD: normocephalic, atraumatic. NECK: Supple. No adenopathy, no masses. RESPIRATORY: Airway patent, respirations nonlabored. Clear to auscultation bilaterally, no rales, rhonchi, wheezing. CARDIOVASCULAR: Regular rate and rhythm without murmurs rubs or gallops. ABDOMINAL: Soft, nontender, nondistended, normal bowel sounds MUSCULOSKELETAL: Moves all extremities. Strength/ROM intact, No edema, No calf
[2021-10-03 01:02] VITALS: BP 104/65; PULSE 66; RESP 16; O2SAT 96
== END 2021-10-03 01:03 | disposition home or self-care (01) ==
LOC: ANHED 10-03 00:40
PROVIDERS: Emergency Provider Emergency Medicine; PCP Emergency Medicine
DX: R33.9 Retention of urine, unspecified (principal); N41.9 Inflammatory disease of prostate, unspecified; I50.9 Heart failure, unspecified; J44.9 Chronic obstructive pulmonary disease, unspecified; E11.9 Type 2 diabetes mellitus without complications; E78.5 Hyperlipidemia, unspecified; Z87.440 Personal history of urinary (tract) infections; F17.210 Nicotine dependence, cigarettes, uncomplicated; Z79.82 Long term (current) use of aspirin; Z79.84 Long term (current) use of oral hypoglycemic drugs
CPT/HCPCS: 51702; 99283

== ENCOUNTER 2021-11-08 09:30 | Outpatient (CLI) | payer MEDICARE, SELFPAY ==
[2021-11-08 09:57] LABS: Basophils Absolute Auto 0.09 K/mm3 (0.00-0.10); Basophils Percent Auto 0.6 % (0.0-1.0); Eosinophils Absolute Auto 0.34 K/mm3 (0.02-0.50); Eosinophils Percent Auto 2.4 % (1.0-6.0); Hematocrit 50.6 % (37.0-46.0); Hemoglobin 16.4 g/dL (12.4-15.3); Immature Granulocyte Absolute 0.09 K/mm3 (0.00-0.00); Immature Granulocyte Percent A 0.6 % (0.0-0.0); Lymphocytes Absolute Auto 3.18 K/mm3 (1.10-4.50); Lymphocytes Percent Auto 22.1 % (18.0-42.0); Mean Corpuscular HGB Conc 32.4 g/dL (32.0-36.0); Mean Corpuscular Hemoglobin 28.7 pg (27.0-31.0); Mean Corpuscular Volume 88.6 fL (78.0-102.0); Monocytes Absolute Auto 0.84 K/mm3 (0.10-0.90); Monocytes Percent Auto 5.8 % (2.0-11.0); Neutrophils Absolute Auto 9.9 K/mm3 (1.7-7.2); Neutrophils Percent Auto 68.5 % (50.0-70.0); Platelet Count Result 261 K/mm3 (150-420); Red Blood Count 5.71 M/mm3 (4.70-6.10); White Blood Count 14.4 K/mm3 (4.8-10.8)
[2021-11-08 10:25] LABS: Alanine Aminotransferase 22 U/L (16-63); Albumin Level 3.7 g/dL (3.4-5.0); Alkaline Phosphatase 116 U/L (46-116); Anion Gap 7 mmol/L (8-16); Aspartate Amino Transferase 33 U/L (15-37); Blood Urea Nitrogen 18 mg/dL (7-18); Calcium 9.8 mg/dL (8.5-10.1); Carbon Dioxide 29 mmol/L (21-32); Chloride 99 mmol/L (98-108); Cholesterol 139 mg/dL (0-200); Estimated Glomerular Filt Rate > 60; Glucose 175 mg/dL (70-99); HDL Direct 41 mg/dL (40-60); LDL Cholesterol Calculated 74 mg/dL (<130); Osmolality Calculated 285 mOsm/kg (285-295); Potassium 5.5 mmol/L (3.5-5.1); Sodium 135 mmol/L (136-145); Thyroid Stimulating Hormone 0.82 uIU/mL (0.36-3.74); Total Protein 7.9 g/dL (6.4-8.2); Triglycerides 122 mg/dL (0-150)
[2021-11-08 10:28] LABS: Hemoglobin A1C 7.9 % (<5.7)
[2021-11-13 01:55] LABS: Vitamin D 1,25 (OH)2 Total 40 pg/mL (18-72); Vitamin D2 1,25 (OH)2 <8 pg/mL; Vitamin D3 1,25 (OH)2 40 pg/mL
== END 2021-11-08 09:31 | disposition home or self-care (01) ==
PROVIDERS: PCP Emergency Medicine; Visit Provider Emergency Medicine
DX: R53.83 Other fatigue (principal); R73.09 Other abnormal glucose; I10 Essential (primary) hypertension; Z12.5 Encounter for screening for malignant neoplasm of prostate; Z13.220 Encounter for screening for lipoid disorders; E55.9 Vitamin D deficiency, unspecified
CPT/HCPCS: 36415; 80053; 80061; 82652; 83036; 84153; 84443; 85025; G0103

== ENCOUNTER 2021-11-11 13:53 | Outpatient (CLI) | payer MEDICARE, SELFPAY ==
[2021-11-11 14:22] LABS: Potassium 4.1 mmol/L (3.5-5.1)
== END 2021-11-11 13:54 | disposition home or self-care (01) ==
LOC: CHSLAB 13:57
PROVIDERS: PCP Emergency Medicine; Visit Provider Emergency Medicine
DX: E87.6 Hypokalemia (principal)
CPT/HCPCS: 36415; 84132

== ENCOUNTER 2022-02-26 10:04 | Outpatient (CLI) | payer MEDICARE, SELFPAY ==
[2022-02-26 10:41] LABS: Hemoglobin A1C 7.5 % (<5.7)
[2022-02-26 10:43] LABS: Alanine Aminotransferase 73 U/L (16-63); Albumin Level 3.6 g/dL (3.4-5.0); Alkaline Phosphatase 102 U/L (46-116); Anion Gap 8 mmol/L (8-16); Aspartate Amino Transferase 36 U/L (15-37); Bilirubin,Total 0.5 mg/dL (0.00-1.00); Blood Urea Nitrogen 24 mg/dL (7-18); Calcium 9.5 mg/dL (8.5-10.1); Carbon Dioxide 27 mmol/L (21-32); Chloride 101 mmol/L (98-108); Cholesterol 157 mg/dL (0-200); Estimated Glomerular Filt Rate > 60; Glucose 207 mg/dL (70-99); HDL Direct 49 mg/dL (40-60); LDL Cholesterol Calculated 78 mg/dL (<130); Osmolality Calculated 292 mOsm/kg (285-295); Potassium 4.8 mmol/L (3.5-5.1); Sodium 136 mmol/L (136-145); Total Protein 7.5 g/dL (6.4-8.2); Triglycerides 149 mg/dL (0-150)
== END 2022-02-26 10:05 | disposition home or self-care (01) ==
LOC: CHSLAB 10:08
PROVIDERS: PCP Emergency Medicine; Visit Provider Emergency Medicine
DX: I50.9 Heart failure, unspecified (principal); E78.00 Pure hypercholesterolemia, unspecified; E11.9 Type 2 diabetes mellitus without complications
CPT/HCPCS: 36415; 80053; 80061; 83036

== ENCOUNTER 2022-06-30 12:25 | Outpatient (CLI) | payer MEDICARE, OTHER, SELFPAY ==
[2022-06-30 13:25] LABS: Hemoglobin A1C 9.1 % (<5.7)
[2022-06-30 13:31] LABS: Microalbumin Urine Random 132.3 mg/L
[2022-06-30 13:42] LABS: Alanine Aminotransferase 34 U/L (16-63); Albumin Level 3.6 g/dL (3.4-5.0); Alkaline Phosphatase 116 U/L (46-116); Anion Gap 8 mmol/L (8-16); Aspartate Amino Transferase 16 U/L (15-37); Bilirubin,Total 0.7 mg/dL (0.00-1.00); Blood Urea Nitrogen 14 mg/dL (7-18); Calcium 9.6 mg/dL (8.5-10.1); Carbon Dioxide 28 mmol/L (21-32); Chloride 102 mmol/L (98-108); Cholesterol 161 mg/dL (0-200); Estimated Glomerular Filt Rate > 60; Glucose 186 mg/dL (70-99); HDL Direct 43 mg/dL (40-60); LDL Cholesterol Calculated 90 mg/dL (<130); Osmolality Calculated 291 mOsm/kg (285-295); Potassium 4.5 mmol/L (3.5-5.1); Sodium 138 mmol/L (136-145); Total Protein 7.3 g/dL (6.4-8.2); Triglycerides 140 mg/dL (0-150)
== END 2022-06-30 12:26 | disposition home or self-care (01) ==
PROVIDERS: PCP Emergency Medicine; Visit Provider Emergency Medicine
DX: R53.83 Other fatigue (principal); E11.9 Type 2 diabetes mellitus without complications; I50.9 Heart failure, unspecified
CPT/HCPCS: 36415; 80053; 80061; 82043; 83036

== ENCOUNTER 2023-06-10 08:47 | Outpatient (CLI) | payer MEDICARE, OTHER, SELFPAY ==
[2023-06-10 09:39] LABS: Hemoglobin A1C 8.5 % (<5.7)
[2023-06-10 09:56] LABS: Alanine Aminotransferase 29 U/L (16-63); Albumin Level 3.5 g/dL (3.4-5.0); Alkaline Phosphatase 100 U/L (46-116); Anion Gap 5 mmol/L (8-16); Aspartate Amino Transferase 10 U/L (15-37); Bilirubin,Total 0.6 mg/dL (0.00-1.00); Blood Urea Nitrogen 11 mg/dL (7-18); Calcium 9.7 mg/dL (8.5-10.1); Carbon Dioxide 34 mmol/L (21-32); Chloride 98 mmol/L (98-108); Cholesterol 155 mg/dL (0-200); Estimated Glomerular Filt Rate > 60; Glucose 188 mg/dL (70-99); HDL Direct 42 mg/dL (40-60); LDL Cholesterol Calculated 96 mg/dL (<130); Osmolality Calculated 288 mOsm/kg (285-295); Potassium 4.2 mmol/L (3.5-5.1); Prostate Specific Antigen 2.3 ng/mL (< OR = 4.0); Sodium 137 mmol/L (136-145); Total Protein 6.9 g/dL (6.4-8.2); Triglycerides 84 mg/dL (0-150)
[2023-06-10 09:59] LABS: Creatinine Urine 81.39 mg/dL (40-278)
[2023-06-13 21:48] LABS: Vitamin D 25 Hydroxy 32 ng/mL (30-100)
== END 2023-06-10 08:48 | disposition home or self-care (01) ==
LOC: CHSLAB 08:50
PROVIDERS: PCP Emergency Medicine; Visit Provider Emergency Medicine
DX: Z12.5 Encounter for screening for malignant neoplasm of prostate (principal); I50.9 Heart failure, unspecified; E11.9 Type 2 diabetes mellitus without complications; E55.9 Vitamin D deficiency, unspecified
CPT/HCPCS: 36415; 80053; 80061; 82043; 82306; 83036; 84153; G0103

== ENCOUNTER 2023-10-05 12:35 | Outpatient (CLI) | payer MEDICARE, SELFPAY ==
[2023-10-05 13:51] LABS: Alanine Aminotransferase 22 U/L (6-50); Albumin Level 4.3 g/dL (3.5-5.1); Alkaline Phosphatase 91 U/L (38-126); Anion Gap 7 mmol/L (4-12); Aspartate Amino Transferase 20 U/L (17-59); Blood Urea Nitrogen 15 mg/dL (9-20); Calcium 10.1 mg/dL (8.4-10.2); Carbon Dioxide 27 mmol/L (22-30); Chloride 105 mmol/L (98-107); Estimated Glomerular Filt Rate > 60; Glucose 153 mg/dL (65-110); Potassium 4.3 mmol/L (3.4-5.0); Sodium 139 mmol/L (137-145)
== END 2023-10-05 12:36 | disposition home or self-care (01) ==
PROVIDERS: PCP Emergency Medicine
DX: C69.31 Malignant neoplasm of right choroid (principal)
CPT/HCPCS: 36415; 80053

== ENCOUNTER 2023-10-21 09:57 | Outpatient (CLI) | payer MEDICARE, SELFPAY ==
--- NOTE | ~2023-10-21 | CT_ITS ---
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 Dose reduction technique was used on this scan by carmen garcíaing automated exposure control and iterative reconstruction technique. The dose-length product (DL P) was 893.88 mGy-cm. COMPARISON: 08/21/2020 Findings: There is no evidence of any significant mediastinal, hilar or axillary lymphadenopathy. The mediastin al soft tissues and vascular structures appear normal. There is no evidence of pleural or pericardial effusion. There is moderate to advanced emphysema, particularly upper lobes. There are several subpleural subce ntimeter right upper lobe pulmonary nodules, most likely benign. The liver, spleen, pancreas, gallbladder, adrenals and kidneys are within normal limits. There are at herosclerotic calcifications and soft atherosclerotic plaques of the aorta. No lymphadenopathy. No bowel obstruction or bowel wall thickening. There is no evidence to suggest acute appendicitis. Urinary bladder is unremarkable. Prostate gland is enlarged, and indents to the bladder base. Impression: No evidence of metastatic disease. Moderate to advanced emphysema with several probable benign subpleural subcentimeter right upper lobe pulmonary nodules. Enlarged prostate gland. Reviewed, dictated and finalized at location . Impression: No evidence of metastatic disease. Moderate to advanced emphysema with several probable benign subpleural subcenti meter right upper lobe pulmonary nodules. Enlarged prostate gland.
== END 2023-10-21 09:58 | disposition home or self-care (01) ==
LOC: ANHIMG 10:01
PROVIDERS: PCP Emergency Medicine
DX: C69.31 Malignant neoplasm of right choroid (principal); J43.9 Emphysema, unspecified; N40.0 Benign prostatic hyperplasia without lower urinary tract symptoms
CPT/HCPCS: 71260; 74177; Q9967

== ENCOUNTER 2024-05-09 10:40 | Outpatient (CLI) | payer MEDICARE, SELFPAY ==
[2024-05-09 11:28] LABS: Alanine Aminotransferase 26 U/L (6-50); Albumin Level 4.1 g/dL (3.5-5.1); Alkaline Phosphatase 97 U/L (38-126); Anion Gap 3 mmol/L (4-12); Aspartate Amino Transferase 20 U/L (17-59); Bilirubin,Total 0.6 mg/dL (0.2-1.3); Blood Urea Nitrogen 21 mg/dL (9-20); Calcium 9.8 mg/dL (8.4-10.2); Carbon Dioxide 32 mmol/L (22-30); Chloride 99 mmol/L (98-107); Cholesterol 155 mg/dL (0-200); Estimated Glomerular Filt Rate > 60; Glucose 176 mg/dL (65-110); HDL Direct 43 mg/dL; Potassium 4.7 mmol/L (3.4-5.0); Sodium 134 mmol/L (137-145); Triglycerides 98 mg/dL (<150)
[2024-05-09 11:39] LABS: LDL Cholesterol Direct 87 mg/dL
[2024-05-09 11:46] LABS: Hemoglobin A1C 9.4 % (<5.7)
[2024-05-09 12:17] LABS: Creatinine Urine 83.1 mg/dL
[2024-05-09 12:36] LABS: MALB Creatinine Ratio 265.5 mg/g (0-30); Microalbumin Urine Random 220.6 mg/L (0-16.7)
== END 2024-05-09 10:41 | disposition home or self-care (01) ==
PROVIDERS: PCP Emergency Medicine; Visit Provider Emergency Medicine
DX: Z13.1 Encounter for screening for diabetes mellitus (principal); E11.9 Type 2 diabetes mellitus without complications; Z13.220 Encounter for screening for lipoid disorders
CPT/HCPCS: 36415; 80053; 80061; 82043; 83036

== ENCOUNTER 2024-11-13 10:25 | Outpatient (CLI) | payer MEDICARE, SELFPAY ==
[2024-11-13 10:56] LABS: Alanine Aminotransferase 22 U/L (6-50); Albumin Level 4.1 g/dL (3.5-5.1); Alkaline Phosphatase 97 U/L (38-126); Anion Gap 5 mmol/L (4-12); Aspartate Amino Transferase 22 U/L (17-59); Bilirubin,Total 0.6 mg/dL (0.2-1.3); Blood Urea Nitrogen 15 mg/dL (9-20); Calcium 9.5 mg/dL (8.4-10.2); Carbon Dioxide 30 mmol/L (22-30); Chloride 99 mmol/L (98-107); Cholesterol 192 mg/dL (0-200); Estimated Glomerular Filt Rate > 60; Glucose 164 mg/dL (65-110); HDL Direct 41 mg/dL; Potassium 4.7 mmol/L (3.4-5.0); Sodium 134 mmol/L (137-145); Triglycerides 118 mg/dL (<150)
--- OUTSIDE RECORDS SUMMARY | 2024-11-13 11:00 | XMS_ITS | Encounter Summary ---
Author Organization [facility] Address [address] [place] [address] Phone Care Team Providers Care Waste Machine Offbearer Name Role Phone Mark Case MD Primary Care Provide r Maykel Brooks MD Unavailable [phone] Herb Weber OD Unavailable [phone] Chris Valle MD Unavailable [phone] Mckinley Garcia MD Unavailable [phone] Encounter Details Date Type Department Care Team (Latest Contact Info) Description 12/17/2023 Orders Only CRAFT IM ONCOLOGY Scanning, Provider Social History Tobacco Use Types Packs/Day Years Used Date Smoking Tobacco: Every Day Cigarettes Passive Smoke Exposure: Never Smokeless Tobacco: Never Comments:Smoking History Pac ks/day: 0.5 Packs Alcohol Use Standard Drinks/Week Comments Yes 0 (1 standard drink = 0.6 oz pur e alcohol) AUDIT-C Answer Date Recorded Q1: How often do you have a drink containing alcohol? Never 12/08/2023 Q2: How many drinks containi ng alcohol do you have on a typical day when you are drinking? Patient does not drink Q3: How often do you have si x or more drinks on one occasion? Never 12/08/2023 Personal Safety Answer Date Recorded Have you ever been in or are you currently in a harmful physical or emotional relationship or is someone making you feel afraid or unsafe? 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 Gender Identity Not on file Sexual Orientation Not on file documented as of this encounter Plan of Treatment Not on file documented as of this encounter Procedures Procedure Name Priority Date/Time Associated Diagnosis Comments SCAN - LABS 12/17/2023 documented in this encounter Results * SCAN - LABS (12/17/2023) us Provider Scanning Final Result documented in this encounter Visit Diagnoses Not on filedocumented in this encounter Care Teams Waste Machine Offbearer Relationship Specialty Start Date End Date Mark Case MD [address] [place] [address] PCP - General Emergency Medicine 09/10/23 Maykel Brooks MD [address] [place] [address] Referring Physician Ophthalmology 11/16/23 Herb Weber OD [address] [place] [address] Optometry 11/16/23 Chris Valle MD [address] DEPT OPTHALMOLOGY, [address] [place] [address] Consulting Physician Ophthalmology 12/28/23 Mckinley Garcia MD [address] DEPT OPTHALMOLOGY, [address] [place] [address] Medical Oncologist/Rounding Machine Tender Medical Oncology 12/28/23 documented as of this encounter
--- OUTSIDE RECORDS SUMMARY | 2024-11-13 11:00 | XMS_ITS | Encounter Summary ---
Author Organization [facility] Address [address] [place] [address] Phone Care Team Providers Care Palliative Care Coordinator Name Role Phone Mark Case MD Primary Care Provide r Maykel Brooks MD Unavailable [phone] Herb Weber OD Unavailable [phone] Chris Valle MD Unavailable [phone] Mckinley Garcia MD Unavailable [phone] Encounter Details Date Type Department Care Team (Latest Contact Info) Description 01/17/2024 Orders Only CRAFT IM ONCOLOGY Scanning, Provider [...] on file 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 Gender Identity Not on file Sexual Orientation Not on file documented as of this encounter Plan of Treatment Not on file documented as of this encounter Procedures Procedure Name Priority Date/Time Associated Diagnosis Comments SCAN - PATHOLOGY 01/17/2024 documented in this encounter Results * SCAN - PATHOLOGY (01/17/2024) us Provider Scanning Edited Result - Final documented in this encounter Visit Diagnoses Not on filedocumented in this encounter Care Teams Palliative Care Coordinator Relationship Specialty Start Date End Date Mark Case MD [address] [place] [address] PCP - General Emergency Medicine 09/10/23 Maykel Brooks MD [address] [place] [address] Referring Physician Ophthalmology 11/16/23 Herb Weber OD [address] [facility] [address] Optometry 11/16/23 Chris Valle MD [address] DEPT OPTHALMOLOGY, [address] [place] [address] Consulting Physician Ophthalmology 12/28/23 Mckinley Garcia MD [address] DEPT OPTHALMOLOGY, [address] [place] [id number] Medical Oncologist/Commercial Subcontractor Medical Oncology 12/28/23 documented as of this encounter
--- OUTSIDE RECORDS SUMMARY | 2024-11-13 11:00 | XMS_ITS | Referral Summary ---
Author Organization [facility] Address [address] [place] [address] Care Team Providers Care Bone Char Operator Name Role Phone Mark Case MD Primary Care Provide r Maykel Brooks MD Unavailable [phone] Herb Weber OD Unavailable [phone] Chris Valle MD Unavailable [phone] Mckinley Garcia MD Unavailable [phone] Allergies No known active allergies Medications aspirin (ASPIRIN LOW DOSE) 81 mg tablet take 1 Tablet (81MG) by oral route every day 0 05/30/20 12 Active Additional Information Patient taking differently:81 mgoral Nightly, Indications: Myocardial Reinfarction Prevention, Informant: Spouse/Significant Other, Reported on 12/08/2023 albuterol HFA (PROAIR HFA) 90 mcg/actuation inhaler inhale 2 puff by inhalation route every 4 - 6 hours as needed 0 05/30/20 12 Active Additional Information Patient taking differently: 2 puff inhalation As needed, shortness of breath, Indications: Chronic Obstructive Pulmonary Disease, Informant: Spouse/Significant Other, Reported on 12/08/2023 multivitamin tablet tablet take 1 tablet by oral route every day with food 0 05/30/20 12 Active Additional Information Patient taking differently: 1 tablet oral Nightly, Indications: Vitamin Deficiency Prevention, supplement, Informant: Spouse/Significant Other, Reported on 12/08/2023 fluticasone-salmet rai (ADVAIR DISKUS) 250-50 mcg/dose diskus inhaler inhale 1 puff by inhalation route 2 times every day in the morning and evening approximately 12 hours apart 0 05/30/20 12 Active Additional Information Patient taking differently: 1 puff inhalation 2 times daily, Indications: Bronchospasm Prevention with COPD, Informant: Spouse/Significant Other, Reported on 12/08/2023 spironolactone (ALDACTONE) 25 mg tablet TAKE 1 TABLET BY ORAL ROUTE EVERY DAY 90 3 06/18/20 14 Active Additional Information Patient taking differently:25 mgoral Nightly, Indications: chronic heart failure, Informant: Spouse/Significant Other, Reported on 12/08/2023 atorvastatin (LIPITOR) 10 mg tablet TAKE 1 TABLET (10MG) BY ORAL ROUTE EVERY DAY 90 3 06/24/20 12 Active Additional Information Patient taking differently:10 mgoral Nightly, Indications: hyperlipidemia, Informant: Spouse/Significant Other, Reported on 12/08/2023 atenoloL (TENORMIN) 50 mg tabletIndications: hypertension Take 1 tablet (50 mg total) by mouth nightly at bedtime. 09/13/19 24 Active dutasteride (AVODART) 0.5 mg capsuleIndications :benign prostatic hyperplasia with lower urinary tract sx Take 1 capsule (0.5 mg total) by mouth nightly 08/24/19 24 Active losartan (COZAAR) 100 mg tabletIndications: hypertension Take 1 tablet (100 mg total) by mouth nightly at bedtime. 09/13/19 24 Active metFORMIN (GLUCOPHAGE) 500 mg tabletIndications: type 2 diabetes mellitus Take 1 tablet (500 mg total) by mouth nightly 09/13/19 24 Active tamsulosin (FLOMAX) 0.4 mg extended release capsuleIndications :benign prostatic hyperplasia with lower urinary tract sx Take 1 capsule (0.4 mg total) by mouth nightly 08/27/[address] (PROTONIX) 40 mg EC tabletIndications: Treatment of Non-Bleeding Gastric Disorder Take 1 tablet (40 mg total) by mouth nightly 11/02/19 24 Active glucosamine-chondr oit-vit C-Mn capsuleIndications :joint health Take 1 tablet by mouth nightly Active ondansetron ODT (ZOFRAN-ODT) 4 mg disintegrating tabletIndications: Prevention of Post-Operative Nausea and Vomiting Take 1 tablet (4 mg total) by mouth every 8 (eight) hours as needed for nausea 12 tablet 12/17/19 24 Active Additional Information Patient not taking.Reported on 02/22/2024 oxyCODONE (ROXICODONE) 5 mg immediate release tabletIndications: Pain Take 1 tablet (5 mg total) by mouth every 6 (six) hours as needed for pain (Pain not controlled with Tylenol) 12 tablet 12/17/19 24 Active Additional Information Patient not taking.Reported on 02/22/2024 erythromycin (ILOTYCIN) ophthalmic ointment Apply to right eye nightly 3.5 g 11 03/03/20 24 Active Active Problems Problem Noted Date Diagnosed Date 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 Examination demonstrates a large choroidal mass consistent with choroidal melanoma, considering its size I think the best options enucleation for the right eye. We discussed the risk of metastatic disease, and the need for systemic evaluation. Will arrange for systemic screening for metastasis and evaluation with our ocular plastics colleagues for enucleation of the right eye. 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 Gender Identity Not on file Sexual Orientation Not on file Last Filed Vital Signs Vital Sign Reading Time Taken Comments Blood Pressure 144/73 03/13/2024 9:45 AM CDT Pulse 75 03/13/2024 9:45 AM CDT Temperature 36.3 C (97.3 F) 03/13/2024 9:45 AM CDT Respiratory Rate 18 03/13/2024 9:45 AM CDT Oxygen Saturation 93% 03/13/2024 9:45 AM CDT Inhaled Oxygen Concentration - - Weight 83.7 kg (184 lb 9.6 oz) 03/13/2024 9:45 A M CDT Height 177.8 cm (5' 10 ) 03/13/2024 9:45 AM CDT Body Mass Index 26.49 03/13/2024 9:45 AM CDT Plan of Treatment Not on file Medical Devices Implanted Type Area Artist Color Separation Device Identifier Shelf Expiration Date Model / Serial / Lot Mid Tamie Transplant Srvcs Implant Cornea Sclera Whole Left V0048 - [id number] - [id number] Implanted:Qty: 1 on 12/17/2023 by Chris Valle MD at [facility] Other - see comments Right: Orbit Mid Tamie Transplant Srvcs 10/19/2024 V0048 / [id number] / [id number] Description:Sclera [employer] Anjana 22mm 22mm Hard Lightweight Inert Virtually Unbreakable [id number] - [id number] Implanted:Qty: 1 on 12/17/2023 by Chris Valle MD at [facility] Other - see comments Right: [employer] [id number] 02/11/2026 [id number] / / [id number] Description:Sphere Procedures Procedure Name Priority Date/Time Associated Diagnosis Comments CT CHEST ABDOMEN PELVIS W CONTRAST Schedule Routine, Read Routine (OP Routine) 03/13/2024 7:31 AM CDT 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 Multiple sub-5 mm right upper lung pulmonary nodules on a background of centrilobular emphysema. No definite evidence of metastatic disease in the chest, abdomen or pelvis. 2. 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 Dictated by: Julia Stein MD The radiology attending physician has personally reviewed this study, and had reviewed and/or edited this written report and agrees with it. Electronically signed by: Janis Mahan M.D. Narrative 03/13/2024 8:25 AM CDT EXAMINATION: Computed tomography of the chest, abdomen and pelvis with intravenous contrast HISTORY: Choroid melanoma of the right eye. TECHNIQUE: Transaxial computed tomographic images of the chest, abdomen and pelvis were obtained with intravenous contrast according to the standard protocol after the uneventful administration of 70 mL Opti-Ray 350 intravenous contrast. COMPARISON: None. FINDINGS: Chest: Extensive centrilobular emphysematous changes to the lungs. There are multiple sub-5 mm right apical pulmonary nodules. For reference, right upper lobe pulmonary nodule measures 4 mm (series 3 image 37). No pulmonary consolidation, pneumothorax or pleural effusion. There is debris within the left mainstem bronchus. No supraclavicular, mediastinal, or axillary lymphadenopathy. Heart is normal in size without pericardial effusion. Moderate calcified and noncalcified atherosclerosis of the aortic arch. There is noncalcified eccentric atherosclerotic plaque of the descending aorta. Abdomen/Pelvis: Multiple hypoattenuating liver lesions are too small to accurately characterize but likely represent simple cysts and can be correlated with prior CTs if available. For reference, a hepatic segment 7 lesion measures 5 mm (series 2 image 136). Gallbladder normal. Portal, superior mesenteric, and splenic veins are patent. Spleen and pancreas are normal. Thickening of the left adrenal gland likely secondary to adenomatous change or small adenomas. Kidneys enhance symmetrically without hydronephrosis or nephrolithiasis. Bilateral hypoattenuating renal lesions, some of which are too small to actually characterize likely represent simple cysts. Bladder is normal. Prostate is moderately enlarged. Bowel is normal in course and caliber with evidence of obstruction or inflammation. No ascites or pneumoperitoneum. Distal esophagus and stomach are normal. There is severe calcified and noncalcified plaque of the abdominal aorta. No abdominal or pelvic lymphadenopathy. Likely bone island within the right proximal femur. Multilevel degenerative changes without suspicious osseous lesion. Procedure Note Janis Mahan MD - 03/13/2024 EXAMINATION: Computed tomography of the chest, abdomen and pelvis with intravenous contrast HISTORY: Choroid melanoma of the right eye. TECHNIQUE: Transaxial computed tomographic images of the chest, abdomen and pelvis were obtained with intravenous contrast according to the standard protocol after the uneventful administration of 70 mL Opti-Ray 350 intravenous contrast. COMPARISON: None. FINDINGS: Chest: Extensive centrilobular emphysematous changes to the lungs. There are multiple sub-5 mm right apical pulmonary nodules. For reference, right upper lobe pulmonary nodule measures 4 mm (series 3 image 37). No pulmonary consolidation, pneumothorax or pleural effusion. There is debris within the left mainstem bronchus. No supraclavicular, mediastinal, or axillary lymphadenopathy. Heart is normal in size without pericardial effusion. Moderate calcified and noncalcified atherosclerosis of the aortic arch. There is noncalcified eccentric atherosclerotic plaque of the descending aorta. Abdomen/Pelvis: Multiple hypoattenuating liver lesions are too small to accurately characterize but likely represent simple cysts and can be correlated with prior CTs if available. For reference, a hepatic segment 7 lesion measures 5 mm (series 2 image 136). Gallbladder normal. Portal, superior mesenteric, and splenic veins are patent. Spleen and pancreas are normal. Thickening of the left adrenal gland likely secondary to adenomatous change or small adenomas. Kidneys enhance symmetrically without hydronephrosis or nephrolithiasis. Bilateral hypoattenuating renal lesions, some of which are too small to actually characterize likely represent simple cysts. Bladder is normal. Prostate is moderately enlarged. Bowel is normal in course and caliber with evidence of obstruction or inflammation. No ascites or pneumoperitoneum. Distal esophagus and stomach are normal. There is severe calcified and noncalcified plaque of the abdominal aorta. No abdominal or pelvic lymphadenopathy. Likely bone island within the right proximal femur. Multilevel degenerative changes without suspicious osseous lesion. IMPRESSION: 1. Multiple sub-5 mm right upper lung pulmonary nodules on a background of centrilobular emphysema. No definite evidence of metastatic disease in the chest, abdomen or pelvis. 2. 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 Dictated by: Julia Stein MD The radiology attending physician has personally reviewed this study, and had reviewed and/or edited this written report and agrees with it. Electronically signed by: Janis Mahan M.D. Mckinley Garcia MD IMG CT PROCEDURES Final Result from Last 3 Months or Most Recently Relevant to Health Maintenance Insurance Second Decimal MEDICARE PPO [employer] CHOICE MEDICARE PPO Care Teams Bone Char Operator Relationship Specialty Start Date End Date Mark Case MD [address] [place] [address] PCP - General Emergency Medicine 09/10/23 Maykel Brooks MD [address] [place] [address] Referring Physician Ophthalmology 11/16/23 Herb [place] [address] Optometry 11/16/23 Chris Valle MD [address] DEPT OPTHALMOLOGY, [address] [place] [address] Consulting Physician Ophthalmology 12/28/23 Mckinley Garcia MD [address] DEPT OPTHALMOLOGY, [address] [place] [address] Medical Oncologist/Voting Machine Repairer Medical Oncology 12/28/23
--- OUTSIDE RECORDS SUMMARY | 2024-11-13 11:00 | XMS_ITS ---
Author Organization [facility] Address [address] [place] [address] Care Team Providers Care Manufacturing Maintenance Mechanic Name Role Phone Mark Case MD Primary Care Provide r Maykel Brooks MD Unavailable [phone] Herb Weber OD Unavailable Chris Valle MD Unavailable [phone] Mckinley Garcia MD Unavailable [phone] Active Problems Problem Noted Date Diagnosed Date [...] colleagues for enucleation of the right eye. Current Treatment and Therapy Plans No current plan information found. Past Treatment and Therapy Plans No past plan information found. Lifetime Dose Tracking * Chemical Lifetime Dose Automatic Entry Manual Entr y DLP 611 mGycm 611 mGycm 0 mGycm
--- OUTSIDE RECORDS SUMMARY | 2024-11-13 11:00 | XMS_ITS | Clinical Summary ---
Author Organization [facility] Address [address] [place] [address] Care Team Providers Care Software Quality Assurance Engineer Name Role Phone Mark Case MD Primary Care Provide r Maykel Brooks MD Unavailable Herb Weber OD Unavailable [phone] Chris Valle MD Unavailable [phone] Mckinley Garcia MD Unavailable [phone] Allergies No known active allergies Medications [...] colleagues for enucleation of the right eye. Surgical History Surgery Date Site/Laterality Comments NO PAST SURGERIES Per pateint EYE SURGERY ENUCLEATION 12/17/2023 Right RIGHT EYE ENUCLEATION WITH SCLERA COVERED IMPLANT Medical History Medical History Date Comments Hypertension Hypertension Chronic obstructive pulmonary disease (HCC) COPD Gastroesophageal reflux disease GERD Cataract Prostate disorder Diabetes mellitus (HCC) CHF (congestive heart failure) (HCC) NICM Emphysema lung (HCC) Choroidal malignant melanoma, right (HCC) Malignant melanoma (HCC) choroid right eye Retinal detachment Family History Medical History Relation Name Comments Heart attack Mother's Brother 1 1 Myocardia l Infarction; Heart attack Mother's Brother 2 2 Myocardia l Infarction; Heart attack Mother's Brother 3 3 Myocardia l Infarction; Cancer Sister Diabetes Neg Hx Glaucoma Neg Hx Macular degeneration Neg Hx Thyroid disease Neg Hx Relation Name Status Comments Mother's Brother 1 1 Alive Mother's Brother 2 2 Alive Mother's Brother 3 3 Alive Sister Social History Tobacco Use Types Packs/Day Years [...] on file 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 Gender Identity Not on file Sexual Orientation Not on file Obstetrics History Last Filed Vital Signs Vital Sign Reading [...] 03/13/2024 9:45 AM CDT Plan of Treatment Health Maintenance Due Date Last Done Comments Colon Cancer Screening-Colonoscopy 1955 Depression Screening 1955 Hepatitis C Screening 1955 Prostate Cancer Screening-PSA 1955 DTaP/Tdap/Td Vaccine (1 - Tdap) 1966 Hepatitis B Screening 1973 Pneumococcal vaccine 65+ (1 of 2 - PCV) 1974 Zoster Vaccine (1 of 2) 2005 Well Visit 65+ 01/21/2020 Fall Risk Assessment 12/16/2024 12/17/2023 Influenza Vaccine (Season Ended) 2025 Abdominal Aortic Aneurysm (AAA) Screen Completed Medical Devices Implanted Type Area Pigment Weigher Device Identifier Shelf Expiration Date Model / Serial / Lot Mid Tamie Transplant Srvcs Implant Cornea Sclera Whole Left V0048 - [id number] - [id number] Implanted:Qty: 1 on 12/17/2023 by Chris Valle MD at [facility] Other - see comments Right: [employer] Mid Tamie Transplant Srvcs 10/19/2024 V0048 / [id number] / [id number] Description:Sclera [employer] Anjana 22mm 22mm Hard Lightweight Inert Virtually Unbreakable [id number] - [id number] Implanted:Qty: 1 on 12/17/2023 by Chris Valle MD at [facility] Other - see comments Right: [employer] [id number] 02/11/2026 [id number] / / [id number] Description:Sphere Procedures Procedure Name Priority Date/Time Associated [...] Most Recently Relevant to Health Maintenance Insurance [employer] CHOICE MEDICARE PPO [employer] CHOICE MEDICARE PPO Care Teams Software Quality Assurance Engineer Relationship Specialty Start Date End Date Mark Case MD [address] [place] [address] PCP - General Emergency Medicine 09/10/23 Maykel Brooks MD [address] [place] [address] Referring Physician Ophthalmology 11/16/23 Herb Weber [place] [address] [address] Optometry 11/16/23 Chris Valle MD [address] DEPT OPTHALMOLOGY, [address] [place] [id number] Consulting Physician Ophthalmology 12/28/23 Mckinley Garica MD [address] DEPT OPTHALMOLOGY, [address] [place] [address] Medical Oncologist/Streetcar Starter Medical Oncology 12/28/23
[2024-11-13 11:07] LABS: LDL Cholesterol Direct 116 mg/dL
[2024-11-13 11:11] LABS: Hemoglobin A1C 7.8 % (<5.7)
[2024-11-13 11:31] LABS: Creatinine Urine 99.3 mg/dL
[2024-11-13 11:49] LABS: MALB Creatinine Ratio 442.9 mg/g (0-30); Microalbumin Urine Random 439.8 mg/L (0-16.7)
== END 2024-11-13 10:26 | disposition home or self-care (01) ==
PROVIDERS: PCP Emergency Medicine; Visit Provider Emergency Medicine
DX: E78.5 Hyperlipidemia, unspecified (principal); E55.9 Vitamin D deficiency, unspecified; E11.9 Type 2 diabetes mellitus without complications
CPT/HCPCS: 36415; 80053; 80061; 82043; 82306; 83036

== ENCOUNTER 2025-02-28 09:18 | Outpatient (CLI) | payer MEDICARE, SELFPAY ==
--- OUTSIDE RECORDS SUMMARY | 2025-02-28 09:58 | XMS_ITS | Encounter Summary ---
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 Gender Identity Not on file Sexual Orientation [...] on filedocumented in this encounter Care Teams Material Coordinator Relationship Specialty Start Date End Date Mark Case MD [address] [place] [address] PCP - General Emergency Medicine 09/10/23 Maykel Brooks MD [address] [place] [address] Referring Physician Ophthalmology 11/16/23 Herb Weber OD [address] [place] [address] Optometry 11/16/23 Chris Valle MD [address] DEPT OPTHALMOLOGY, [address] [place] [address] Consulting Physician Ophthalmology 12/28/23 Mckinley Garcia MD [address] DEPT OPTHALMOLOGY, [address] [place] [address] Medical Oncologist/Visitor Services Assistant Medical Oncology 12/28/23 documented as of this encounter
--- OUTSIDE RECORDS SUMMARY | 2025-02-28 09:58 | XMS_ITS | Encounter Summary ---
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 Gender Identity Not on file Sexual Orientation [...] on filedocumented in this encounter Care Teams Service Counselor Relationship Specialty Start Date End Date Mark Case MD [address] [place] [address] PCP - General Emergency Medicine 09/10/23 Maykel Brooks MD [address] [place] [address] Referring Physician Ophthalmology 11/16/23 Herb Weber OD [address] [facility] [place] [address] Optometry 11/16/23 Chris Valle MD [address] DEPT OPTHALMOLOGY, [address] [place] [address] Consulting Physician Ophthalmology 12/28/23 Mckinley Garcia MD [address] DEPT OPTHALMOLOGY, [address] [place] [address] Medical Oncologist/Ip Counsel Medical Oncology 12/28/23 documented as of this encounter
--- OUTSIDE RECORDS SUMMARY | 2025-02-28 09:58 | XMS_ITS | Patient Health Record ---
Author Organization [facility] Address [address] [place], [place] [id number] Support Name Relationship Address Phone [facility] Emergency Contact Unknown NEFTALY BONNER Guarantor Unknown [phone] Reason For Referral No Information Plan Of Treatment No Information Insurance Providers Payer Name Payer Address Payer Phone Subscriber Number Group Number Insured Name Patient Relationship to Insured Coverage Start Date Coverage End Date Medicare Part B [place] [address] [place] [address] [id number] NEFTALY ROE Self - patient is the insured [employer] [address] [place], [place] [id number] NEFTALY ROE Self - patient is the insured [facility] [address] [place], [place] [id number] NEFTALY ROE Self - patient is the insured
--- OUTSIDE RECORDS SUMMARY | 2025-02-28 09:58 | XMS_ITS ---
Author Organization [facility] Address [address] [place] [address] Care Team Providers Care Research Manufacturing Operator Name Role Phone Mark Case MD Primary Care Provide r Maykel Brooks MD Unavailable [phone] Herb Weber OD Unavailable [phone] Chris Valle MD Unavailable [phone] Mckinley Garcia MD Unavailable [phone] Active Problems Problem Noted Date Diagnosed [...]
--- OUTSIDE RECORDS SUMMARY | 2025-02-28 09:58 | XMS_ITS | Clinical Summary ---
Author Organization [facility] Address [address] [place] [address] Care Team Providers Care Sap Ppm Consultant Name Role Phone Mark Case MD Primary Care Provide r Maykel Brooks MD Unavailable [phone] Herb Weber OD Unavailable [phone] Chris Valle MD Unavailable [phone] Mckinley Garcia MD Unavailable [phone] Allergies No known active allergies Medications [...] supplement, Informant: Spouse/Significant Other, Reported on 12/08/2023 fluticasone-salme terol (ADVAIR DISKUS) 250-50 mcg/dose diskus inhaler inhale [...] Reported on 12/08/2023 atenoloL (TENORMIN) 50 mg tabletIndications :hypertension Take 1 tablet (50 mg total) by mouth nightly at bedtime. 09/13/19 24 Active dutasteride (AVODART) 0.5 mg capsuleIndication s:benign prostatic hyperplasia with lower urinary tract sx Take 1 capsule (0.5 mg total) by mouth nightly 08/24/19 24 Active losartan (COZAAR) 100 mg tabletIndications :hypertension Take 1 tablet (100 mg total) by mouth nightly at bedtime. 09/13/19 24 Active metFORMIN (GLUCOPHAGE) 500 mg tabletIndications :type 2 diabetes mellitus Take 1 tablet (500 mg total) by mouth nightly 09/13/19 24 Active tamsulosin (FLOMAX) 0.4 mg extended release capsuleIndication s:benign prostatic hyperplasia with lower urinary tract sx Take 1 capsule (0.4 mg total) by mouth nightly 08/27/[address] (PROTONIX) 40 mg EC tabletIndications :Treatment of Non-Bleeding Gastric Disorder Take 1 tablet (40 mg total) by mouth nightly 11/02/19 24 Active glucosamine-chond roit-vit C-Mn capsuleIndication s:joint health Take 1 tablet by mouth nightly Active ondansetron ODT (ZOFRAN-ODT) 4 mg disintegrating tabletIndications :Prevention of Post-Operative Nausea and Vomiting Take 1 tablet (4 mg total) by mouth every 8 (eight) hours as needed for nausea 12 tablet 12/17/19 24 Active Additional Information Patient not taking.Reported on 02/22/2024 oxyCODONE (ROXICODONE) 5 mg immediate release tabletIndications :Pain Take 1 tablet (5 mg total) by mouth every 6 (six) hours as needed for pain (Pain not controlled with Tylenol) 12 tablet 12/17/19 24 Active Additional Information Patient not taking.Reported on 02/22/2024 erythromycin (ILOTYCIN) ophthalmic ointment Apply to right eye 2 (two) times a day as needed (right eye mucous discharage) 3.5 g 11 02/21/20 25 Active erythromycin (ILOTYCIN) ophthalmic ointment Apply to right eye nightly 3.5 g 03/03/20 24 025 Discontin ued(Reord er) Active Problems Problem Noted Date Diagnosed Date [...] colleagues for enucleation of the right eye. Encounters Date Type Department Care Team Description 02/20/2025 11:00 AM CDT Office Visit [facility] Ophthalmology [address] [place] [address] Health [address] [place] [address] Chris Valle MD Anophthalmos (Primary Dx); Discharge of eye, right from Last 3 Months Surgical History Surgery Date Site/Laterality Comments NO PAST SURGERIES Per pateint EYE SURGERY ENUCLEATION 12/17/2023 Right RIGHT EYE ENUCLEATION WITH SCLERA COVERED IMPLANT Medical History Medical History Date Comments Hypertension Hypertension Chronic obstructive pulmonary disease (HCC) COPD Gastroesophageal reflux disease GERD Cataract Prostate disorder Diabetes mellitus (HCC) CHF (congestive heart failure) (HCC) NICM Emphysema lung Choroidal malignant melanoma, right (HCC) Malignant melanoma [...] on file 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 Gender Identity Not on file Sexual Orientation [...] A M CDT Height 177.8 cm (5' 10) 03/13/2024 9:45 AM CDT Body Mass Index 26.49 03/13/2024 9:45 AM CDT Plan of Treatment Health Maintenance Due Date Last Done Comments Colon Cancer Screening-Colonoscopy 1955 Depression Screening 1955 Hepatitis C Screening 1955 DTaP/Tdap/Td Vaccine (1 - Tdap) 1966 Hepatitis B Screening 1973 Pneumococcal vaccine 65+ (1 of 2 - PCV) 1974 Zoster Vaccine (1 of 2) 2005 Well Visit 65+ 01/21/2020 Fall Risk Assessment 12/16/2024 12/17/2023 Influenza Vaccine (#1) 2025 Abdominal Aortic Aneurysm (AAA) Screen Completed Medical Devices Implanted Type Area Locks Tender Device Identifier Shelf Expiration Date Model / Serial / Lot [facility] Tamie Transplant Srvcs Implant Cornea Sclera Whole Left V0048 - [id number] - [id number] Implanted:Qty: 1 on 12/17/2023 by Chris Valle MD at [facility] Other - see comments Right: Orbit Mid Tamie Transplant Srvcs 10/19/2024 [id number] / [id number] / [id number] Description:Sclera [employer] Anjana 22mm 22mm Hard Lightweight Inert Virtually Unbreakable [id number] - [id number] Implanted:Qty: 1 on 12/17/2023 by Chris Valle MD at [facility] Other - see comments Right: [employer] [id number] 02/11/2026 [id number] / / [id number] Description:Sphere Procedures Procedure Name Priority Date/Time Associated [...] Most Recently Relevant to Health Maintenance Insurance [employer] CHOICE MEDICARE PPO [employer] CHOICE MEDICARE PPO Care Teams Sap Ppm Consultant Relationship Specialty Start Date End Date Mark Case MD [address] [place] [address] PCP - General Emergency Medicine 09/10/23 Maykel Brooks MD [address] [place] [address] Referring Physician Ophthalmology 11/16/23 Herb Weber OD [address] [place] [address] Optometry 11/16/23 Chris Valle MD [address] [facility] OPTHAL[facility]OLOGY, [address] [place] [address] [id number] Consulting Physician Ophthalmology 12/28/23 Mckinley Garcia MD [address] [facility], [address] [place] [address] Medical Oncologist/Car Detailer Medical Oncology 12/28/23
[2025-02-28 10:17] LABS: Alanine Aminotransferase 26 U/L (6-50); Albumin Level 4.0 g/dL (3.5-5.1); Alkaline Phosphatase 122 U/L (38-126); Anion Gap 7 mmol/L (4-12); Aspartate Amino Transferase 27 U/L (17-59); Bilirubin,Total 0.8 mg/dL (0.2-1.3); Blood Urea Nitrogen 14 mg/dL (9-20); Calcium 10.0 mg/dL (8.4-10.2); Carbon Dioxide 28 mmol/L (22-30); Chloride 99 mmol/L (98-107); Cholesterol 201 mg/dL (0-200); Estimated Glomerular Filt Rate > 60; Glucose 183 mg/dL (65-110); HDL Direct 38 mg/dL; Potassium 4.1 mmol/L (3.4-5.0); Sodium 134 mmol/L (137-145); Total Protein 7.6 g/dL (6.3-8.2); Triglycerides 106 mg/dL (<150)
[2025-02-28 10:19] LABS: Hemoglobin A1C 9.9 % (<5.7)
[2025-02-28 10:48] LABS: MALB Creatinine Ratio 540.4 mg/g (0-30)
== END 2025-02-28 09:19 | disposition home or self-care (01) ==
LOC: ANHLAB 09:20
PROVIDERS: PCP Emergency Medicine; Visit Provider Emergency Medicine
DX: E11.9 Type 2 diabetes mellitus without complications (principal); E78.5 Hyperlipidemia, unspecified; E55.9 Vitamin D deficiency, unspecified
CPT/HCPCS: 36415; 80053; 80061; 82043; 82306; 82565; 83036

== ENCOUNTER 2025-04-12 13:32 | Outpatient (CLI) | payer MEDICARE, SELFPAY ==
--- NOTE | ~2025-04-12 | CT_ITS ---
EXAMINATION: CT brain jessica alejandre, 04/12/2025 14:08 CDT HISTORY: R25.1 - Tremor, unspecified COMPARISON: No comparisons available. Technique: Axial images obtained of the brain without contrast. One or more of the following dose reduction techniques were used: automated exposure control, adjustment of the mA and/or kV according to patient size, use of iterative reconstruction technique. Findings: No acute infarct or parenchymal hemorrhage. No abnormal mass or mass effect. No midline shift. No extra-axial fluid collections. No hydrocephalus. Mastoid air cells unremarkable. Right ocular prosthesis, otherwise orbits unremarkable No acute fracture. No significant facial or scalp soft tissue swelling evident. No radiopaque foreign body is seen. Impression: 1.No acute intracranial abnormality. Reviewed, dictated and finalized at location P. Impression: 1.No acute intracranial abnormality.
--- OUTSIDE RECORDS SUMMARY | 2025-04-12 15:30 | XMS_ITS | Patient Health Record ---
Author Organization [facility] Address [address] [place], [place] [id number] Support Name Relationship Address Phone HAROC[facility]O Emergency Contact Unknown NEFTALY BONNER Guarantor Unknown [phone] Reason For Referral No Information Plan Of Treatment No Information Insurance Providers Payer Name Payer Address Payer Phone Subscriber Number Group Number Insured Name Patient Relationship to Insured Coverage Start Date Coverage End Date Medicare Part B [place] [address] [place] [address] [id number] NEFTALY ROE Self - patient is the insured [employer] [address] [place], [place] [id number] NEFTALY ROE Self - patient is the insured [facility] [address] [place], [place] [id number] NEFTALY ROE Self - patient is the insured
--- OUTSIDE RECORDS SUMMARY | 2025-04-12 15:30 | XMS_ITS ---
Author Organization [facility] Address [address] [place] [address] Care Team Providers Care Binding Cutter Synthetic Cloth Name Role Phone Mark Case MD Primary Care Provide r Maykel Brooks MD Unavailable [phone] Herb Weber OD Unavailable [phone] Chris Valle MD Unavailable [phone] Mckinley Garcia MD Unavailable [phone] Active Problems Problem Noted Date Diagnosed [...]
--- OUTSIDE RECORDS SUMMARY | 2025-04-12 15:30 | XMS_ITS | Clinical Summary ---
Author Organization [facility] Address [address] [place] [address] Care Team Providers Care Wood And Wood Products Labourer Name Role Phone Mark Case MD Primary Care Provide r Maykel Brooks MD Unavailable [phone] Herb Weber OD Unavailable [phone] Chris Valle MD Unavailable [phone] Mckinley Garcia MD Unavailable [phone] Allergies No known active allergies Medications [...] discharage) 3.5 g 11 02/21/20 25 Active Active Problems Problem Noted Date Diagnosed [...] Description 02/20/2025 11:00 AM CDT Office Visit [facility] Ophthalmology 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 Gender Identity Not on file Sexual Orientation [...] Screen Completed Medical Devices Implanted Type Area Manager Money Device Identifier Shelf Expiration Date Model / Serial / Lot Mid Tamie Transplant Srvcs Implant Cornea Sclera Whole Left V0048 - [id number] - [id number] Implanted:Qty: 1 on 12/17/2023 by Chris Valle MD at [facility] Other - see comments Right: [employer]bit Mid Tamie Transplant Srvcs 10/19/2024 V0048 / [id number] / [id number] Description:Sclera [employer] Badin 22mm 22mm Hard Lightweight Inert Virtually Unbreakable [id number] - [id number] Implanted:Qty: 1 on 12/17/2023 by Chris Valle MD at [facility] Other - see comments Right: [employer] [id number] 02/11/2026 [id number] / / [id number] Description:Sphere Procedures Procedure Name Priority Date/Time Associated [...] PPO [employer] CHOICE MEDICARE PPO Care Teams Wood [employer] Wood Products Labourer Relationship Specialty Start Date End Date Mark Case MD [address] [place] [address] PCP - General Emergency Medicine 09/10/23 Maykel Brooks MD [address] [place] [address] Referring Physician Ophthalmology 11/16/23 Herb Weber OD [address] [place] [address] Optometry 11/16/23 Chris Valle MD [address] [facility]Y, [address] [place] [address] [phone] Consulting Physician Ophthalmology 12/28/23 Mckinley Garcia MD [address] [facility] OPTHALMOLOGY, [address] [place] [address] Medical Oncologist/Director [facility] Medical Oncology 12/28/23
--- OUTSIDE RECORDS SUMMARY | 2025-04-12 15:30 | XMS_ITS | Encounter Summary ---
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 Gender Identity Not on file Sexual [...] on filedocumented in this encounter Care Teams Slat Basket Top Maker Relationship Specialty Start Date End Date Mark Case MD [address] [place] [address] PCP - General Emergency Medicine 09/10/23 Maykel Brooks MD [address] [place] [address] Referring Physician Ophthalmology 11/16/23 Herb Weber OD [address] [place] [address] Optometry 11/16/23 Chris Valle MD [address] DEPT OPTHALMOLOGY, [address] [place] [id number] Consulting Physician Ophthalmology 12/28/23 Mckinley Garcia MD [address] DEPT OPTHALMOLOGY, [address] [place] [phone] Medical Oncologist/Brick Shader Medical Oncology 12/28/23 documented as of this encounter
--- OUTSIDE RECORDS SUMMARY | 2025-04-12 15:30 | XMS_ITS | Encounter Summary ---
Author Organization 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 Gender Identity Not on file Sexual Orientation [...] on filedocumented in this encounter Care Teams Clam Treader Relationship Specialty Start Date End Date Makr Case MD [address] [place] [address] PCP - General Emergency Medicine 09/10/23 Maykel Brooks MD [address] [place] [address] Referring Physician Ophthalmology 11/16/23 Herb Weber OD [address] [place] [address] Optometry 11/16/23 Chris Valle MD [address] DEPT OPTHALMOLOGY, [address] [place] [address] Consulting Physician Ophthalmology 12/28/23 Mckinley Garcia MD [address] DEPT OPTHALMOLOGY, [address] [place] [id number] Medical Oncologist/Cardroom Hand Medical Oncology 12/28/23 documented as of this encounter
== END 2025-04-12 13:33 | disposition home or self-care (01) ==
PROVIDERS: PCP Emergency Medicine; Visit Provider Emergency Medicine
DX: R25.1 Tremor, unspecified (principal)
CPT/HCPCS: 70450